=== PATIENT | male | born 1980 | race African-American/Black ===

== ENCOUNTER 2017-06-07 12:33 | Emergency (ER) | payer SELFPAY ==
[~2017-06-07] VITALS: Ht 180.3 cm; Wt 65.0 kg
[~2017-06-07 12:33] MED LIST: AMLO10 PO; AMLO5TAB22 PO; CHLO.12%30 SWISH-SPIT; CLAR10CA3 PO; CLIN150 PO; DIFL100T PO; HYDR-3801 PO; LEVE500 PO; LISI10TA3 PO; NIFE30TA8 PO; OXYC1SOL5 PO; PRED10 PO; WALKER WHEELS/F1 MIS; Z.0.WALKERFRONT
[2017-06-07 12:36] VITALS: BP 170/107; PULSE 93; RESP 10; O2SAT 97
[2017-06-07 12:44] VITALS: BP 152/96; PULSE 95; RESP 10; O2SAT 97
[2017-06-07] MEDS ORDERED: SODIUM CHLORIDE 0.9% FLUSH 10 ML FLUSH IVF PRN (13:00)
[2017-06-07] MEDS ORDERED: OLAN10TA PO (13:01)
[2017-06-07] MEDS ORDERED: HYDR25TA5 PO (13:01)
--- NOTE | 2017-06-07 13:21 | PD ---
HPI . Overdose Chief Complaint: OD/ Ingestion Time Seen by Provider: 12:47 Travel History International Travel<30 days: No Contact w/Intl Traveler<30days: No Traveled to known affect area: No History of Present Illness HPI This patient presents to us status post an overdose. He states that he took all of his prescriptions because he was hearing voices. He states that he was trying to get the voices to stop. He states that the voices are telling him "bad things." The incident reportedly occurred just prior to arrival. He had 7 pills prescribed for each of his 3 prescriptions. 2 of the prescriptions are antihypertensive medications and the other prescription is for an antipsychotic. PFSH Past Medical History Arthritis: No Asthma: Yes Anxiety: Yes Depression: No Heart Rhythm Problems: No Cancer: No High Cholesterol: No Chest Pain: Yes Congestive Heart Failure: No COPD: No Diabetes: No (UNKNOWN ) GERD: Yes Genitourinary: No Headaches: Yes Hepatitis: No Hiatal Hernia: No Hypertension: Yes Kidney Stones: No Musculoskeletal: No Neurologic: Yes Reproductive: No Immunizations Current: Yes Migraines: No Radiation Therapy: No Renal Failure: No Seizures: No Sickle Cell Disease: No Sleep Apnea: No Thyroid Disease: No Ulcer: Yes Tetanus Vaccination: > 5 Years Influenza Vaccination: No Past Surgical History Surgical History: Unable to Obtain Abdominal Surgery: No Cardiac Surgery: No Ear Surgery: No Endocrine Surgery: No Eye Surgery: No Genitourinary Surgery: No Gynecologic Surgery: No Joint Replacement: No Oral Surgery: No Thoracic Surgery: No Other Surgery: No Social History Alcohol Use: No (UNKNOWN ) Tobacco Use: Yes Substance Use: Yes Allergies-Medications (Allergen,Severity, Reaction): Coded Allergies: lisinopril (Unverified Allergy, Severe, angioedema, 04/10/17) Unable to Assess (Unverified Allergy, Unknown, 10/23/16) No Known Allergies (Verified Allergy, 12/27/15) Reported Meds & Prescriptions Reported Meds & Active Scripts Active Nifedipine ER 24 HR (Nifedipine) 30 Mg Tab 30 Mg PO DAILY 30 Days Prednisone 10 Mg Tab 10 Mg PO DAILY 2 Days Diflucan (Fluconazole) 100 Mg Tab 100 Mg PO DAILY 5 Days Cleocin (Clindamycin HCl) 150 Mg Cap 300 Mg PO Q6HR 5 Days Chlorhexidine Gluconate (Mouth) Liq (Chlorhexidine Gluconate) 0.12% Soln 15 Ml SWISH-SPIT TID 10 Days Keppra (Levetiracetam) 500 Mg Tab 500 Mg PO BID Hydralazine (Hydralazine HCl) 100 Mg Tab 25 Mg PO BID Take with meals Claritin (Loratadine) 10 Mg Cap 10 Mg PO DAILY Norvasc (Amlodipine Besylate) 10 Mg Tab 10 Mg PO DAILY Lisinopril 10 Mg Tab 10 Mg PO DAILY 30 Days Reported Olanzapine 10 Mg Tab 10 Mg PO DAILY Hydrochlorothiazide 25 Mg Tab 25 Mg PO DAILY Review of Systems Except as stated in HPI: all other systems reviewed are Neg Physical Exam Narrative GENERAL: The patient is now awake and lying prone on the bed answering questions appropriately. SKIN: warm/dry. HEAD: Normocephalic. Atraumatic. EYES: Pupils equal and round. No scleral icterus. No injection or drainage. ENT: No nasal bleeding or discharge. Mucous membranes pink and moist. NECK: Trachea midline. Full range of motion without pain.. CARDIOVASCULAR: Regular rate and rhythm. RESPIRATORY: No accessory muscle use. Clear to auscultation. Breath sounds equal bilaterally. MUSCULOSKELETAL: No obvious deformities. NEUROLOGICAL: Awake and alert. No obvious cranial nerve deficits. Motor grossly within normal limits. Normal speech. PSYCHIATRIC: Hallucinations. Judgment poor. Data Data Last Documented VS Vital Signs Date Time Temp Pulse Resp B/P (MAP) Pulse Ox O2 Delivery O2 Flow Rate FiO2 06/07/17 15:45 107 12 123/91 (102) 99 Room Air 06/07/17 12:44 2.00 Orders Orders Electrocardiogram (06/07/17 12:47) Complete Blood Count With Diff (06/07/17 12:47) Comprehensive Metabolic Panel (06/07/17 12:47) Iv Access Insert/Monitor (06/07/17 12:47) Ecg Monitoring (06/07/17 12:47) Oximetry (06/07/17 12:47) Sodium Chloride 0.9% Flush (Ns Flush) (06/07/17 13:00) Drug Screen, Random Urine (06/07/17 12:47) Alcohol (Ethanol) (06/07/17 12:47) Tylenol (Acetaminophen) (06/07/17 13:19) Salicylates (Aspirin) (06/07/17 13:19) Psych Screen (3/30/18 15:48) Labs Laboratory Tests Test 06/07/17 13:15 White Blood Count 7.8 TH/MM3 Red Blood Count 3.93 MIL/MM3 Hemoglobin 13.1 GM/DL Hematocrit 38.8 % Mean Corpuscular Volume 98.7 FL Mean Corpuscular Hemoglobin 33.4 PG Mean Corpuscular Hemoglobin Concent 33.8 % Red Cell Distribution Width 12.5 % Platelet Count 277 TH/MM3 Mean Platelet Volume 7.9 FL Neutrophils (%) (Auto) 73.8 % Lymphocytes (%) (Auto) 15.3 % Monocytes (%) (Auto) 7.7 % Eosinophils (%) (Auto) 2.4 % Basophils (%) (Auto) 0.8 % Neutrophils # (Auto) 5.8 TH/MM3 Lymphocytes # (Auto) 1.2 TH/MM3 Monocytes # (Auto) 0.6 TH/MM3 Eosinophils # (Auto) 0.2 TH/MM3 Basophils # (Auto) 0.1 TH/MM3 CBC Comment DIFF FINAL Differential Comment Blood Urea Nitrogen 16 MG/DL Creatinine 1.14 MG/DL Random Glucose 98 MG/DL Total Protein 7.8 GM/DL Albumin 3.6 GM/DL Calcium Level 9.0 MG/DL Alkaline Phosphatase 90 U/L Aspartate Amino Transf (AST/SGOT) 19 U/L Alanine Aminotransferase (ALT/SGPT) 23 U/L Total Bilirubin 0.4 MG/DL Sodium Level 141 MEQ/L Potassium Level 3.5 MEQ/L Chloride Level 105 MEQ/L Carbon Dioxide Level 26.7 MEQ/L Anion Gap 9 MEQ/L Estimat Glomerular Filtration Rate 88 ML/MIN Salicylates Level LESS THAN 1.7 MG/DL Urine Opiates Screen NEG Acetaminophen Level LESS THAN 2.0 MCG/ML Urine Barbiturates Screen NEG Urine Amphetamines Screen NEG Urine Benzodiazepines Screen NEG Urine Cocaine Screen NEG Urine Cannabinoids Screen NEG Ethyl Alcohol Level LESS THAN 3 MG/DL MDM Medical Decision Making Medical Screen Exam Complete: Yes Emergency Medical Condition: Yes Medical Record Reviewed: Yes (His psychiatric diagnosis is substance induced mood disorder.) Differential Diagnosis Differential diagnosis includes but is not limited to factitious report, insignificant ingestion, accidental ingestion, ingestion with significant sequelae Narrative Course This patient presents following an overdose. Poison control has been contacted. Their recommendations will be followed. Once he is medically clear , he will need a psychiatric evaluation. CBC & BMP Diagram 06/07/17 13:15 Total Protein 7.8, Albumin 3.6, Calcium Level 9.0, Alkaline Phosphatase 90, Aspartate Amino Transf (AST/SGOT) 19, Alanine Aminotransferase (ALT/SGPT) 23, Total Bilirubin 0.4 tox screen neg. This patient has been observed for 6 hours per the recommendation of poison control. He is now medically clear for psychiatric evaluation. Diagnosis Primary Impression: Overdose Qualified Codes: T50.901A - Poisoning by unspecified drugs, medicaments and biological substances, accidental (unintentional), initial encounter Additional Impression: Psychosis Qualified Codes: F29 - Unspecified psychosis not due to a substance or known physiological condition Condition: Stable Angie Em MD Jun 07, 2017 13:21
[2017-06-07 13:37] LABS: AUTOMATED NEUTROPHIL # 5.8 TH/MM3 (1.8-7.7); BASOPHIL # 0.1 TH/MM3 (0-0.2); BASOPHIL % 0.8 % (0.0-2.0); EOSINOPHIL # 0.2 TH/MM3 (0-0.4); EOSINOPHIL % 2.4 % (0.0-4.0); HEMATOCRIT 38.8 % (39.0-51.0); HEMOGLOBIN 13.1 GM/DL (13.0-17.0); LYMPH % 15.3 % (9.0-44.0); LYMPHOCYTE # 1.2 TH/MM3 (1.0-4.8); MEAN CELL VOLUME 98.7 FL (80.0-100.0); MEAN CORPUSCULAR HEMOGLOBIN 33.4 PG (27.0-34.0); MEAN CORPUSCULAR HGB CONC 33.8 % (32.0-36.0); MEAN PLATELET VOLUME 7.9 FL (7.0-11.0); MONO % 7.7 % (0.0-8.0); MONOCYTE # 0.6 TH/MM3 (0-0.9); NEUT % 73.8 % (16.0-70.0); PLATELET COUNT 277 TH/MM3 (150-450); RED BLOOD COUNT 3.93 MIL/MM3 (4.50-5.90); RED CELL DISTRIBUTION WIDTH 12.5 % (11.6-17.2); WHITE BLOOD COUNT 7.8 TH/MM3 (4.0-11.0)
[2017-06-07 14:10] LABS: ALBUMIN 3.6 GM/DL (3.4-5.0); AST (GOT) 19 U/L (15-37); BICARBONATE 26.7 MEQ/L (21.0-32.0); BLOOD UREA NITROGEN 16 MG/DL (7-18); CHLORIDE 105 MEQ/L (98-107); CREATININE 1.14 MG/DL (0.60-1.30); GLOMERULAR FILTRATION RATE 88 ML/MIN (>89); GLUCOSE,RANDOM 98 MG/DL (74-106); SODIUM (NA) 141 MEQ/L (136-145)
[2017-06-07 14:11] LABS: ALT (GPT) 23 U/L (12-78)
[2017-06-07 14:12] LABS: ALKALINE PHOSPHATASE 90 U/L (45-117); TOTAL BILIRUBIN ADULT 0.4 MG/DL (0.2-1.0); TOTAL PROTEIN 7.8 GM/DL (6.4-8.2)
[2017-06-07 15:45] VITALS: BP 123/91; PULSE 107; RESP 12; O2SAT 99
[2017-06-07 19:03] VITALS: BP 127/76; PULSE 84; RESP 16; O2SAT 98
[2017-06-07 20:33] VITALS: BP 159/130; PULSE 92; RESP 18; TEMP 97.9; O2SAT 100
[2017-06-07 22:39] VITALS: BP 151/88; PULSE 67; RESP 18; TEMP 98.9; O2SAT 98
[2017-06-08 06:34] VITALS: BP 133/77; PULSE 74; RESP 18; TEMP 98.9; O2SAT 97
[2017-06-08 11:42] VITALS: BP 130/66; PULSE 83; RESP 18; TEMP 98.5; O2SAT 99
--- NOTE | 2017-06-08 12:11 | PD.PSY.CON ---
Provisional Diagnosis Admission Date [place] I. Schizoaffective disorder depressed type f 25.1, history polysubstance abuse History of Present Illness Service Psychiatry Consult Requested By EDMD Reason for Consult Assessment Primary Care Physician Patient is a 36-year-old Afro-Greek male well-known post multiple prior contacts comes here via cab complaining of depression increased auditory hallucinations suicidal ideation stating his medication does not work. Patient seen screened in the ED urine toxicology negative bladder: Negative. Of interest patient also has documentation of being hospitalized at [facility] from 06/05/17 to 06/07/17 it appears she was discharged yesterday and given a prescription for olanzapine amlodipine and hydrochlorothiazide. It appears the [place] he met some friends there supposedly he took all of his pills. Then took a cab and showed [employer]. Patient seen in his room with nurse Lit. Patient is resting quietly in bed with a somewhat irritable angry manipulative attitude. Though he says he is hearing command auditory hallucinations telling him to kill himself and that he is suicidal when confronted with the fact that he had just left an inpatient psychiatric unit yesterday he somewhat close done with his responses. Ineffective the present time I feel this patient is a high risk for doing something impulsive and harming himself. Remains the potential for further psychotic behavior. Thus I will initiate a Gutierrez act. We will contact [facility] and request that they accept this patient back to their [facility]. This appears to be a failed discharge and I feel it is their responsibility to further care for this gentleman. He is no behavior problems at this time. Though he is reluctant to give any information other than what he is already said. HPI Please see dictation above accidentally dictated under "primary care physician" Review of Systems ROS Limitations: Uncooperative Past Family Social History Coded Allergies: lisinopril (Unverified Allergy, Severe, angioedema, 04/10/17) Unable to Assess (Unverified Allergy, Unknown, 10/23/16) No Known Allergies (Verified Allergy, 12/27/15) Active Scripts Nifedipine ER 24 HR (Nifedipine ER 24 HR) 30 Mg Tab, 30 MG PO DAILY for HTN for 30 Days, TAB Prov:Buzz Donato MD 11/01/16 Prednisone (Prednisone) 10 Mg Tab, 10 MG PO DAILY for AMAN for 2 Days, TAB 0 Refills Prov:Buzz Donato MD 09/19/16 Fluconazole (Diflucan) 100 Mg Tab, 100 MG PO DAILY for ORALULc for 5 Days, TAB 0 Refills Prov:Buzz Donato MD 09/19/16 Clindamycin (Cleocin) 150 Mg Cap, 300 MG PO Q6HR for ORALIN for 5 Days, CAP 0 Refills Prov:Buzz Donato MD 09/19/16 Chlorhexidine Gluconate (Mouth) Liq (Chlorhexidine Gluconate (Mouth) Liq) 0.12% Soln, 15 ML SWISH-SPIT TID for oralcare for 10 Days, ML Prov:Buzz Donato MD 09/19/16 Levetiracetam (Keppra) 500 Mg Tab, 500 MG PO BID for Control Seizures, #60 TAB 0 Refills Prov:Maryuri Pope MD 09/15/16 Hydralazine (Hydralazine) 100 Mg Tab, 25 MG PO BID for Blood Pressure Management , #60 TAB 0 Refills Take with meals Prov:Maryuri Pope MD 09/13/16 Loratadine (Claritin) 10 Mg Cap, 10 MG PO DAILY for Allergy Management, #10 CAP 0 Refills Prov:Maryuri Pope MD 09/13/16 Amlodipine (Norvasc) 10 Mg Tab, 10 MG PO DAILY for htn, #30 TAB Prov:Maryuri Pope MD 09/10/16 Lisinopril (Lisinopril) 10 Mg Tab, 10 MG PO DAILY for Blood Pressure Management for 30 Days, TAB Prov:Emy Hillman PA-C 03/01/16 Reported Medications Olanzapine (Olanzapine) 10 Mg Tab, 10 MG PO DAILY, #30 TAB 0 Refills 06/07/17 Hydrochlorothiazide (Hydrochlorothiazide) 25 Mg Tab, 25 MG PO DAILY, #30 TAB 0 Refills 06/07/17 Discontinued Scripts Walker with Front Wheels (Walker with Front Wheels) 1 Mis Mis, 1 EA .ROUTE DIRECTED, #1 EA 0 Refills Prov:Maryuri Pope MD 09/13/16 Current Medications Medications (Trade) Dose Ordered Sig/Gopi Route Start Time Stop Time Status Last Admin (NS Flush) 2 ml UNSCH PRN IVF 06/07/17 13:00 Family Psych History Unknown at this time Social History Unknown at this time Patient's Strengths (min. 2) Patient verbal resistant to cooperation at this time Physical Exam Patient medically cleared ED Vital Signs Vital Signs Date Time Temp Pulse Resp B/P (MAP) Pulse Ox O2 Delivery O2 Flow Rate FiO2 06/08/17 11:42 98.5 83 18 130/66 (87) 99 Room Air 06/07/17 12:44 2.00 Lab Results Test 06/07/17 13:15 White Blood Count 7.8 TH/MM3 Red Blood Count 3.93 MIL/MM3 Hemoglobin 13.1 GM/DL Hematocrit 38.8 % Mean Corpuscular Volume 98.7 FL Mean Corpuscular Hemoglobin 33.4 PG Mean Corpuscular Hemoglobin Concent 33.8 % Red Cell Distribution Width 12.5 % Platelet Count 277 TH/MM3 Mean Platelet Volume 7.9 FL Neutrophils (%) (Auto) 73.8 % Lymphocytes (%) (Auto) 15.3 % Monocytes (%) (Auto) 7.7 % Eosinophils (%) (Auto) 2.4 % Basophils (%) (Auto) 0.8 % Neutrophils # (Auto) 5.8 TH/MM3 Lymphocytes # (Auto) 1.2 TH/MM3 Monocytes # (Auto) 0.6 TH/MM3 Eosinophils # (Auto) 0.2 TH/MM3 Basophils # (Auto) 0.1 TH/MM3 CBC Comment DIFF FINAL Differential Comment Blood Urea Nitrogen 16 MG/DL Creatinine 1.14 MG/DL Random Glucose 98 MG/DL Total Protein 7.8 GM/DL Albumin 3.6 GM/DL Calcium Level 9.0 MG/DL Alkaline Phosphatase 90 U/L Aspartate Amino Transf (AST/SGOT) 19 U/L Alanine Aminotransferase (ALT/SGPT) 23 U/L Total Bilirubin 0.4 MG/DL Sodium Level 141 MEQ/L Potassium Level 3.5 MEQ/L Chloride Level 105 MEQ/L Carbon Dioxide Level 26.7 MEQ/L Anion Gap 9 MEQ/L Estimat Glomerular Filtration Rate 88 ML/MIN Salicylates Level LESS THAN 1.7 MG/DL Urine Opiates Screen NEG Acetaminophen Level LESS THAN 2.0 MCG/ML Urine Barbiturates Screen NEG Urine Amphetamines Screen NEG Urine Benzodiazepines Screen NEG Urine Cocaine Screen NEG Urine Cannabinoids Screen NEG Ethyl Alcohol Level LESS THAN 3 MG/DL Mental Status Examination Appearance: Disheveled Consciousness: Alert Orientation: Person, Place Motor Activity: Normal gait Speech: Hesitant, Slow Language: Other Fund of Knowledge: Adequate Attention and Concentration: Other Memory: Impaired (poor) Mood: Angry, Sad, Irritable Affect: Other (decreased range and intensity) Thought Process & Associations: Disorganized Thought Content: Hallucinations Hallucination Type: Auditory Delusion Type: Paranoid Suicidal Ideation: Yes (command auditory hallucinations) Suicidal Plan: Yes (command auditory hallucinations) Suicidal Intention: Yes (command auditory hallucinations) Homicidal Ideation: No Homicidal Plan: No Homicidal Intention: No Insight: Poor Judgment: Poor Assessment & Plan Problem List: (1) Schizoaffective disorder, depressive type ICD Codes: F25.1 - Schizoaffective disorder, depressive type (2) history polysubstance abuse Assessment & Plan Estimated LOS: days patient meets criteria for involuntary psychiatric consultation at this time. I will initiate a Gutierrez act. I feels patient is a failed discharged from the [facility] act see issue yesterday will refer her back to that facility. May be a component of manipulation malingering involved bifrontal this patient demands further observation and assessment Discharge Planning See above Nathaniel Caraballo MD Jun 08, 2017 12:11
[2017-06-08] MEDS ORDERED: OLANZapine ODT 10 MG TAB SL ONE (12:45)
--- NOTE | 2017-06-08 14:43 | EKG ---
Date Performed: 06/07/2017 Time Performed: 12:39:31 PTAGE: 36 years EKG: Sinus rhythm MARKED LEFT AXIS DEVIATION MINIMAL VOLTAGE CRITERIA FOR LVH, CONSIDER NORMAL VARIANT ABNORMAL ECG Si nce PREVIOUS TRACING , no significant change noted PREVIOUS TRACIN11/06/2016 02.52.22 DOCTOR: Long Baird Interpretating Date/Time 06/08/2017 14:41:47
[2017-06-08 18:10] VITALS: BP 146/81; PULSE 85; RESP 16; TEMP 98.6; O2SAT 100
[2017-06-09 02:27] VITALS: BP 149/72; PULSE 85; RESP 18; TEMP 98.8; O2SAT 99
[2017-06-09 06:21] VITALS: PULSE 88; RESP 20; TEMP 98; O2SAT 98
[2017-06-09 06:41] VITALS: BP_SYST 130; BP_SYST 156; BP_DIAS 101; BP_DIAS 80
[2017-06-09 16:05] VITALS: BP 153/97; PULSE 88; RESP 20
--- NOTE | 2017-06-09 20:55 | PD ---
Physical Exam Date Seen by Provider: Jun 09, 2017 Time Seen by Provider: 20:53 Narrative For full history and physical examination please see previous providers note. Data Data Last Documented VS Vital Signs Date Time Temp Pulse Resp B/P (MAP) Pulse Ox O2 Delivery O2 Flow Rate FiO2 06/09/17 16:05 88 20 153/97 (115) Room Air 06/09/17 06:21 98.0 98 06/07/17 12:44 2.00 Orders Orders Electrocardiogram (06/07/17 12:47) Complete Blood Count With Diff (06/07/17 12:47) Comprehensive Metabolic Panel (06/07/17 12:47) Iv Access Insert/Monitor (06/07/17 12:47) Ecg Monitoring (06/07/17 12:47) Oximetry (06/07/17 12:47) Sodium Chloride 0.9% Flush (Ns Flush) (06/07/17 13:00) Drug Screen, Random Urine (06/07/17 12:47) Alcohol (Ethanol) (06/07/17 12:47) Tylenol (Acetaminophen) (06/07/17 13:19) Salicylates (Aspirin) (06/07/17 13:19) Psych Screen (06/07/17 15:48) Diet Regular Basic (06/08/17 Breakfast) Diet Regular Basic (06/08/17 Lunch) Olanzapine Odt (Zyprexa Zydis Odt) (06/08/17 12:45) Diet Regular Basic (06/08/17 Dinner) Diet Regular Basic (06/09/17 Breakfast) Diet Regular Basic (06/09/17 Lunch) Diet Regular Basic (06/09/17 Dinner) Amlodipine (Norvasc) (06/09/17 20:30) Labs Laboratory Tests Test 06/07/17 13:15 White Blood Count 7.8 TH/MM3 Red Blood Count 3.93 MIL/MM3 Hemoglobin 13.1 GM/DL Hematocrit 38.8 % Mean Corpuscular Volume 98.7 FL Mean Corpuscular Hemoglobin 33.4 PG Mean Corpuscular Hemoglobin Concent 33.8 % Red Cell Distribution Width 12.5 % Platelet Count 277 TH/MM3 Mean Platelet Volume 7.9 FL Neutrophils (%) (Auto) 73.8 % Lymphocytes (%) (Auto) 15.3 % Monocytes (%) (Auto) 7.7 % Eosinophils (%) (Auto) 2.4 % Basophils (%) (Auto) 0.8 % Neutrophils # (Auto) 5.8 TH/MM3 Lymphocytes # (Auto) 1.2 TH/MM3 Monocytes # (Auto) 0.6 TH/MM3 Eosinophils # (Auto) 0.2 TH/MM3 Basophils # (Auto) 0.1 TH/MM3 CBC Comment DIFF FINAL Differential Comment Blood Urea Nitrogen 16 MG/DL Creatinine 1.14 MG/DL Random Glucose 98 MG/DL Total Protein 7.8 GM/DL Albumin 3.6 GM/DL Calcium Level 9.0 MG/DL Alkaline Phosphatase 90 U/L Aspartate Amino Transf (AST/SGOT) 19 U/L Alanine Aminotransferase (ALT/SGPT) 23 U/L Total Bilirubin 0.4 MG/DL Sodium Level 141 MEQ/L Potassium Level 3.5 MEQ/L Chloride Level 105 MEQ/L Carbon Dioxide Level 26.7 MEQ/L Anion Gap 9 MEQ/L Estimat Glomerular Filtration Rate 88 ML/MIN Salicylates Level LESS THAN 1.7 MG/DL Urine Opiates Screen NEG Acetaminophen Level LESS THAN 2.0 MCG/ML Urine Barbiturates Screen NEG Urine Amphetamines Screen NEG Urine Benzodiazepines Screen NEG Urine Cocaine Screen NEG Urine Cannabinoids Screen NEG Ethyl Alcohol Level LESS THAN 3 MG/DL MDM Medical Record Reviewed: Yes Supervised Visit with AYLA: No Narrative Course Patient presented to the emergency department after an intentional overdose secondary to auditory and visual hallucinations. He was seen and evaluated in the emergency department, medically cleared. He was then evaluated by psychiatry. Patient was at [facility], per records the discharge failed and patient will be returning there tonight for further treatment. Diagnosis Primary Impression: Overdose Qualified Codes: T50.901A - Poisoning by unspecified drugs, medicaments and biological substances, accidental (unintentional), initial encounter Additional Impression: Psychosis Qualified Codes: F29 - Unspecified psychosis not due to a substance or known physiological condition Patient Instructions: General Instructions Departure Forms: Tests/Procedures Additional Instruction: GO TO [facility] FOR FURTHER EVALUATION AND TREATMENT Disposition: 65 DISC TO PSYCH CARE FACILITY Condition: Stable Nayeli Noble Judy TORREZ Jun 09, 2017 20:55
== END 2017-06-09 21:25 ==
LOC: NEPC 12:33 → NEPJ 06-09 21:25
DX: T50.902A Poisoning by unspecified drugs, medicaments and biological substances, intentional self-harm, initial encounter (principal); F25.1 Schizoaffective disorder, depressive type; R94.31 Abnormal electrocardiogram [ECG] [EKG]; I10 Essential (primary) hypertension; Z72.0 Tobacco use
CPT/HCPCS: 80053; 80307; 85025; 93005

== ENCOUNTER 2017-07-09 20:54 | Emergency (ER) | payer OTHER ==
[~2017-07-09] VITALS: Ht 172.7 cm; Wt 78.0 kg
[~2017-07-09 20:54] MED LIST changes: -AMLO5TAB22 PO; +HYDR25TA5 PO; +OLAN10TA PO; -OXYC1SOL5 PO; -WALKER WHEELS/F1 MIS; -Z.0.WALKERFRONT
[2017-07-09 21:08] VITALS: BP 160/81; PULSE 110; RESP 18; TEMP 98.3; O2SAT 97
[2017-07-09] MEDS ORDERED: LORazepam 2 MG/ML VIAL IV PUSH ONE ×2 (21:15→22:00)
--- NOTE | 2017-07-09 21:19 | PD ---
HPI Chief Complaint: Alcohol/Drug Intoxication Time Seen by Provider: 21:10 Travel History International Travel<30 days: No Contact w/Intl Traveler<30days: No Traveled to known affect area: No History of Present Illness HPI 36-year-old black male with history of substance abuse presents emergency department under [place] act due to substance abuse. Patient has been doing FLAKKA and [place] Per PD. The patient is cooperative but agitated. Patient is not able to render meaningful history. This is a presentation that the patient has had multiple times in the past. PFSH Past Medical History Arthritis: No Asthma: Yes Anxiety: Yes Depression: No Heart Rhythm Problems: No Cancer: No High Cholesterol: No Chest Pain: Yes Congestive Heart Failure: No COPD: No Diabetes: No (UNKNOWN ) Gastrointestinal Disorders: No GERD: Yes Genitourinary: No Headaches: Yes Hepatitis: No Hiatal Hernia: No Hypertension: Yes Kidney Stones: No Musculoskeletal: No Neurologic: Yes Reproductive: No Immunizations Current: Yes Migraines: No Radiation Therapy: No Renal Failure: No Seizures: No Sickle Cell Disease: No Sleep Apnea: No Thyroid Disease: No Ulcer: Yes Tetanus Vaccination: > 5 Years Influenza Vaccination: No Past Surgical History Abdominal Surgery: No Cardiac Surgery: No Ear Surgery: No Endocrine Surgery: No Eye Surgery: No Genitourinary Surgery: No Gynecologic Surgery: No Joint Replacement: No Neurologic Surgery: No Oral Surgery: No Thoracic Surgery: No Other Surgery: No Social History Alcohol Use: No (UNKNOWN ) Tobacco Use: Yes Substance Use: Yes ([email or web address]) Allergies-Medications (Allergen,Severity, Reaction): Coded Allergies: lisinopril (Unverified Allergy, Severe, angioedema, 07/09/17) No Known Allergies (Verified Allergy, Unknown, 07/09/17) Unable to Assess (Unverified Allergy, Unknown, 07/09/17) Reported Meds & Prescriptions Reported Meds & Active Scripts Active Nifedipine ER 24 HR (Nifedipine) 30 Mg Tab 30 Mg PO DAILY 30 Days Prednisone 10 Mg Tab 10 Mg PO DAILY 2 Days Diflucan (Fluconazole) 100 Mg Tab 100 Mg PO DAILY 5 Days Cleocin (Clindamycin HCl) 150 Mg Cap 300 Mg PO Q6HR 5 Days Chlorhexidine Gluconate (Mouth) Liq (Chlorhexidine Gluconate) 0.12% Soln 15 Ml SWISH-SPIT TID 10 Days Keppra (Levetiracetam) 500 Mg Tab 500 Mg PO BID Hydralazine (Hydralazine HCl) 100 Mg Tab 25 Mg PO BID Take with meals Claritin (Loratadine) 10 Mg Cap 10 Mg PO DAILY Norvasc (Amlodipine Besylate) 10 Mg Tab 10 Mg PO DAILY Lisinopril 10 Mg Tab 10 Mg PO DAILY 30 Days Reported Olanzapine 10 Mg Tab 10 Mg PO DAILY Hydrochlorothiazide 25 Mg Tab 25 Mg PO DAILY Review of Systems ROS Limitations: Intoxication, Altered Mental Status Physical Exam Narrative GENERAL: Well-nourished, well-developed patient. SKIN: Warm and dry. HEAD: Normocephalic and atraumatic. EYES: No scleral icterus. No injection or drainage. ENT: No nasal drainage noted. Mucous membranes pink. Airway patent. NECK: Supple, trachea midline. Moves head freely without obvious discomfort. CARDIOVASCULAR: Regular tachycardic rate and rhythm without murmurs, gallops, or rubs. RESPIRATORY: Breath sounds equal bilaterally. No accessory muscle use. GASTROINTESTINAL: Abdomen soft, non-tender, nondistended. EXTREMITIES: No cyanosis or edema. BACK: Nontender without obvious deformity. No CVA tenderness. NEURO: Patient is alert and oriented. no sensorimotor deficits. Nonfocal. Normal speech. PSYCH: Patient is acutely agitated. Poor insight and judgment Data Data Last Documented VS Vital Signs Date Time Temp Pulse Resp B/P (MAP) Pulse Ox O2 Delivery O2 Flow Rate FiO2 07/09/17 21:08 98.3 110 18 160/81 (107) 97 Orders Orders Lorazepam Inj (Ativan Inj) (07/09/17 21:15) [facility] Medical Decision Making Medical Screen Exam Complete: Yes Emergency Medical Condition: Yes Medical Record Reviewed: Yes Differential Diagnosis Differential diagnoses: Alcohol intoxication, substance abuse, electrolyte abnormality, malingering Narrative Course The patient is cooperative but agitated. He is given 2 mg of Ativan IV. Patient is on a sat monitor as well as grader tender. Diagnosis Primary Impression: Substance abuse Additional Impression: Altered mental status Qualified Codes: R40.0 - Somnolence Med/Other Pt SpecificInfo: No Meds Exist/No RX given Condition: Stable Lavell Car July 09, 2017 21:19
[2017-07-09] MEDS ORDERED: HALOPERIDOL LACTATE 5 MG/ML AMP IV ONE (21:30)
[2017-07-09 21:56] VITALS: PULSE 100; RESP 16; O2SAT 96
[2017-07-09 23:28] VITALS: PULSE 87; RESP 16; O2SAT 96
[2017-07-10 05:36] VITALS: BP 141/84; PULSE 79; RESP 16; O2SAT 97
== END 2017-07-10 09:58 | disposition home or self-care (01) ==
LOC: NEPD 20:54
DX: F19.10 Other psychoactive substance abuse, uncomplicated (principal); I10 Essential (primary) hypertension; Z72.0 Tobacco use
CPT/HCPCS: 96374; 96375; 99284; J1630; J2060

== ENCOUNTER 2017-12-04 01:07 | Inpatient (IN) ==
[2017-12-04 01:48] LABS: Baso # (Auto) 0.1 th/mm3 (0.0-0.2); Baso % (Auto) 0.7 % (0.0-2.0); Eos % (Auto) 0.1 % (0.0-4.0); Hematocrit 41.7 % (39.0-51.0); Hemoglobin 14.1 gm/dL (13.0-17.0); Lymph # (Auto) 1.3 th/mm3 (1.0-4.8); Lymph % (Auto) 9.4 % (9.0-44.0); Mean Corpuscular HGB Conc 33.9 % (32.0-36.0); Mean Corpuscular Hemoglobin 33.1 pg (27.0-34.0); Mean Corpuscular Volume 97.5 fL (80.0-100.0); Mono # (Auto) 1.4 th/mm3 (0.0-0.9); Mono % (Auto) 10.5 % (0.0-8.0); Neut # (Auto) 10.8 th/mm3 (1.8-7.7); Neut % (Auto) 79.3 % (16.0-70.0); Platelet Count 300 th/mm3 (150-450); Red Blood Count 4.27 mil/mm3 (4.50-5.90); Red Cell Distribution Width 13.2 % (11.6-17.2); White Blood Count 13.7 th/mm3 (4.0-11.0)
[2017-12-04 01:57] LABS: Amphetamine Urine With Conf Neg (Neg); Benzodiazepine Urine With Conf Neg (Neg)
[2017-12-04 02:14] LABS: Alkaline Phosphatase 102 U/L (45-117); Total Protein 9.4 g/dL (6.4-8.2)
[2017-12-04 02:15] LABS: Alanine Aminotransferase 34 U/L (12-78); Albumin 4.9 g/dL (3.4-5.0); Anion Gap 17 meq/L (5-15); Aspartate Aminotransferase 59 U/L (15-37); Blood Urea Nitrogen 31 mg/dL (7-18); Calcium 8.8 mg/dL (8.5-10.1); Carbon Dioxide 23.3 meq/L (21.0-32.0); Chloride 95 meq/L (98-107); Glomerular Filtration Rate 21 mL/min (>89); Glucose,Random 79 mg/dL (74-106); Sodium 135 meq/L (136-145)
[2017-12-04 02:16] LABS: Potassium 3.7 meq/L (3.5-5.1)
--- NOTE | 2017-12-04 02:22 | XR ---
EXAM DATE: 12/04/2017 1:14 AM EDT AGE/SEX: 37 years / Male INDICATIONS: OD, cough. CLINICAL DATA: This is the patient's initial encounter. Patient reports that signs and symptoms have been present for 1 day and indicates a pain score of Nonresponsive. MEDICAL/SURGICAL HISTORY: Non-responsive. Non-responsive. COMPARISON: [facility] [place], CHEST 2V PA&LAT, 11/20/2017. . FINDINGS: 2 AP views of the chest. Right lung apex not visualized. The lungs are clear. Cardiomedia stinal silhouette within normal limits. No evidence of pleural effusion or pneumothorax. CONCLUSION: No acute cardiopulmonary disease identified. Electronically signed by: Homero Burkett MD 12/04/2017 2:20 AM EDT
[2017-12-04] MEDS ORDERED: Sod Chloride 0.9% Inj 1,000 ML IV.SIG ONE (02:38)
--- NOTE | 2017-12-04 02:43 | ED ---
HPI General Chief Complaint: Overdose Stated Complaint: Confused Time Seen by Provider: 12/04/17 01:14 Source: EMS and old records reviewed Mode of arrival: EMS Limitations: altered mental status History of Present Illness HPI Narrative: Patient is a 37-year-old male that was brought in by EMS where he was found outside [facility] house facedown on the grass. Pupils were dilated and nonreactive patient was given Narcan without any response. He is known Flock a user. He arrived on restraints because he was aggressive with paramedics and his GCS on the scene was 6 but then she was placed on restraints. complaint: other (Unknown overdose) Onset (ago): unknown Related Data Home Medications Medication Instructions Recorded Confirmed No Known Home Medications 11/20/17 12/04/17 Allergies Allergy/AdvReac Type Severity Reaction Status Date / Time lisinopril Allergy Severe angioedema Verified 12/04/17 01:13 Review of Systems ROS Unobtainable ROS Unobtainable: unobtainable due to mental status PMFSH Medical History Medical History Hypertension (Acute) Patient denies medical problems (Acute) Surgical History Surgical History No history of previous surgery (Acute) Family History Family History Other Family history unobtainable Family history unobtainable due to patient's condition Social History Social History Substance History: Unable to Obtain Second Hand Smoke Exposure: Yes Smoking Status: Unknown if ever smoked Tobacco Type: Cigarettes How Often Do You Have a Drink Containing Alcohol: Unable to Obtain Recent Travel in [facility] within the Last 8 Weeks: No Recent Out of Country Travel within the Last 8 Weeks: No Immunization History Tetanus Immunization: Unable to Assess Hx Influenza Vaccine This Season: Unable to Assess Exam Narrative Exam Narrative: GENERAL: Patient distracts to painful stimuli. SKIN: Focused skin assessment warm/dry. He has got dried grafts all over his body. HEAD: Atraumatic. Normocephalic. EYES: Pupils equal and round.Pupils 4 mm bilaterally and sluggish to direct light. No scleral icterus. No injection or drainage. ENT: No nasal bleeding or discharge. Mucous membranes pink and moist. NECK: Trachea midline. No JVD. CARDIOVASCULAR: Regular rate and rhythm. No murmur appreciated. RESPIRATORY: No accessory muscle use. Clear to auscultation. Breath sounds equal bilaterally. GASTROINTESTINAL: Abdomen soft, non-tender, nondistended. Hepatic and splenic margins not palpable. MUSCULOSKELETAL: No obvious deformities. No clubbing. No cyanosis. No edema. NEUROLOGICAL: Does not follow commands arousable to sternal rub moves all extremities no signs of focal neurologic deficit PSYCHIATRIC: unable to assess Course Hospital Course: Patient in renal failure and elevated CK and positive tox screen for cocaine. Start hydration. Head CT and cervical spine are pending at this time. Reevaluation(s) Reevaluation #1: Sleeping comfortably no distress stable vitals. Time: 02:43 Initial Documented Vital Signs Pulse Rate 93 H 12/04/17 01:13 Respiratory Rate 18 12/04/17 01:13 Blood Pressure 150/98 H 12/04/17 01:13 Pulse Oximetry 100 12/04/17 01:13 Last Documented Vital Signs Temperature 98.7 F 12/04/17 12:00 Pulse Rate 76 12/04/17 12:00 Respiratory Rate 18 12/04/17 12:00 Blood Pressure 165/100 H 12/04/17 12:00 Pulse Oximetry 95 12/04/17 12:00 Critical Care Time Critical Care Time: Yes Total Critical Care Time: 45 Attestation: Aggregate critical care time was 45 minutes. Time to perform other separately billable procedures was not included in the critical care time. My time did not include minutes spent treating any other patients simultaneously or on activities that did not directly contribute to the patient's treatment. The services I provided to this patient were to treat and/or prevent clinically significant deterioration that could result in: Permanent disability and I provided critical care services requiring my management, as noted below: Chart data review, documentation time, medication orders and management, vital sign assessments/reviewing monitor data, ordering and reviewing lab tests, ordering and interpreting/reviewing x-rays and diagnostic studies, care of the patient and discussion of the patient with the admitting physicians. Medical Decision Making MDM Narrative Medical decision making narrative: Patient with a creatinine of 3.96. CPK was pending at this time. Had an anion gap of 17. Possibly Flock/stimulant use. Cocaine positive on tox screen. Given Ativan for agitation. Hemodynamically stable he does have a leukocytosis no signs of infection. Medical Screen Exam Complete: Yes Emergency Medical Condition: Yes Medical Records Medical records reviewed: Yes I reviewed the patient's medical records. Lab Data Lab results reviewed: Yes I reviewed the patient's lab results. Result diagrams: 12/04/17 01:20 12/04/17 13:00 Lab Results 12/04/17 12/04/17 12/04/17 Range/Units 01:20 01:20 01:20 WBC 13.7 H (4.0-11.0) th/mm3 RBC 4.27 L (4.50-5.90) mil/mm3 Hgb 14.1 (13.0-17.0) gm/dL Hct 41.7 (39.0-51.0) % MCV 97.5 (80.0-100.0) fL MCH 33.1 (27.0-34.0) pg MCHC 33.9 (32.0-36.0) % RDW 13.2 (11.6-17.2) % Plt Count 300 D (150-450) th/mm3 MPV 8.0 (7.0-11.0) fL Neut % (Auto) 79.3 H (16.0-70.0) % Lymph % (Auto) 9.4 (9.0-44.0) % Crenshaw % (Auto) 10.5 H (0.0-8.0) % Eos % (Auto) 0.1 (0.0-4.0) % Baso % (Auto) 0.7 (0.0-2.0) % Neut # (Auto) 10.8 H (1.8-7.7) th/mm3 Lymph # (Auto) 1.3 (1.0-4.8) th/mm3 Crenshaw # (Auto) 1.4 H (0.0-0.9) th/mm3 Eos # (Auto) 0.0 (0.0-0.4) th/mm3 Baso # (Auto) 0.1 (0.0-0.2) th/mm3 WBC Differential . Differential Comment Auto diff final Sodium 135 L (136-145) meq/L Potassium 3.7 (3.5-5.1) meq/L Chloride 95 L (98-107) meq/L Carbon Dioxide 23.3 (21.0-32.0) meq/L Anion Gap 17 H (5-15) meq/L BUN 31 H (7-18) mg/dL Creatinine 3.96 H (0.60-1.30) mg/dL Estimated GFR 21 L (>89) mL/min POC Glucose (68-110) mg/dl Random Glucose 79 (74-106) mg/dL Lactic Acid (0.4-2.0) mmol/L Calcium 8.8 (8.5-10.1) mg/dL Total Bilirubin 1.1 H (0.2-1.0) mg/dL Direct Bilirubin (0.0-0.2) mg/dL Indirect Bilirubin (0.0-0.8) mg/dL AST 59 H (15-37) U/L ALT 34 (12-78) U/L Alkaline Phosphatase 102 (45-117) U/L Total Creatine Kinase (39-308) U/L CK-MB (CK-2) (0.5-3.6) ng/mL CK-MB (CK-2) % (0.0-4.0) % Total Protein 9.4 H (6.4-8.2) g/dL Albumin 4.9 (3.4-5.0) g/dL TSH 1.770 (0.358-3.740) uIU/mL Salicylates 2.3 L (2.8-20.0) mg/dL Urine Opiates Screen Acetaminophen Less than 2.0 L (10.0-30.0) mcg/mL Ur Barbiturates Screen Ur Amphetamine Screen (Neg) Ur Amphetamines Screen U Benzodiazepines Scrn Urine Cocaine Screen U Cannabinoids Screen Serum Alcohol Less than 3 (0-5) mg/dL 12/04/17 12/04/17 12/04/17 Range/Units 01:20 01:30 01:30 WBC (4.0-11.0) th/mm3 RBC (4.50-5.90) mil/mm3 Hgb (13.0-17.0) gm/dL Hct (39.0-51.0) % MCV (80.0-100.0) fL MCH (27.0-34.0) pg MCHC (32.0-36.0) % RDW (11.6-17.2) % Plt Count (150-450) th/mm3 MPV (7.0-11.0) fL Neut % (Auto) (16.0-70.0) % Lymph % (Auto) (9.0-44.0) % Crenshaw % (Auto) (0.0-8.0) % Eos % (Auto) (0.0-4.0) % Baso % (Auto) (0.0-2.0) % Neut # (Auto) (1.8-7.7) th/mm3 Lymph # (Auto) (1.0-4.8) th/mm3 Crenshaw # (Auto) (0.0-0.9) th/mm3 Eos # (Auto) (0.0-0.4) th/mm3 Baso # (Auto) (0.0-0.2) th/mm3 WBC Differential Differential Comment Sodium (136-145) meq/L Potassium (3.5-5.1) meq/L Chloride (98-107) meq/L Carbon Dioxide (21.0-32.0) meq/L Anion Gap (5-15) meq/L BUN (7-18) mg/dL Creatinine (0.60-1.30) mg/dL Estimated GFR (>89) mL/min POC Glucose (68-110) mg/dl Random Glucose (74-106) mg/dL Lactic Acid (0.4-2.0) mmol/L Calcium (8.5-10.1) mg/dL Total Bilirubin (0.2-1.0) mg/dL Direct Bilirubin (0.0-0.2) mg/dL Indirect Bilirubin (0.0-0.8) mg/dL AST (15-37) U/L ALT (12-78) U/L Alkaline Phosphatase (45-117) U/L Total Creatine Kinase 2549 H (39-308) U/L CK-MB (CK-2) 8.8 H (0.5-3.6) ng/mL CK-MB (CK-2) % 0.3 (0.0-4.0) % Total Protein (6.4-8.2) g/dL Albumin (3.4-5.0) g/dL TSH (0.358-3.740) uIU/mL Salicylates (2.8-20.0) mg/dL Urine Opiates Screen Cancelled Neg Acetaminophen (10.0-30.0) mcg/mL Ur Barbiturates Screen Cancelled Neg Ur Amphetamine Screen Neg (Neg) Ur Amphetamines Screen Cancelled U Benzodiazepines Scrn Cancelled Neg Urine Cocaine Screen Cancelled Pos H U Cannabinoids Screen Cancelled Neg Serum Alcohol (0-5) mg/dL 12/04/17 12/04/17 12/04/17 Range/Units 07:29 09:25 10:01 WBC (4.0-11.0) th/mm3 RBC (4.50-5.90) mil/mm3 Hgb (13.0-17.0) gm/dL Hct (39.0-51.0) % MCV (80.0-100.0) fL MCH (27.0-34.0) pg MCHC (32.0-36.0) % RDW (11.6-17.2) % Plt Count (150-450) th/mm3 MPV (7.0-11.0) fL Neut % (Auto) (16.0-70.0) % Lymph % (Auto) (9.0-44.0) % Crenshaw % (Auto) (0.0-8.0) % Eos % (Auto) (0.0-4.0) % Baso % (Auto) (0.0-2.0) % Neut # (Auto) (1.8-7.7) th/mm3 Lymph # (Auto) (1.0-4.8) th/mm3 Crenshaw # (Auto) (0.0-0.9) th/mm3 Eos # (Auto) (0.0-0.4) th/mm3 Baso # (Auto) (0.0-0.2) th/mm3 WBC Differential Differential Comment Sodium 136 (136-145) meq/L Potassium 3.7 (3.5-5.1) meq/L Chloride 102 (98-107) meq/L Carbon Dioxide 24.4 (21.0-32.0) meq/L Anion Gap 10 (5-15) meq/L BUN 29 H (7-18) mg/dL Creatinine 2.52 H (0.60-1.30) mg/dL Estimated GFR 35 L (>89) mL/min POC Glucose (68-110) mg/dl Random Glucose 72 L (74-106) mg/dL Lactic Acid 0.9 (0.4-2.0) mmol/L Calcium 8.9 (8.5-10.1) mg/dL Total Bilirubin 1.1 H (0.2-1.0) mg/dL Direct Bilirubin 0.2 (0.0-0.2) mg/dL Indirect Bilirubin 0.9 H (0.0-0.8) mg/dL AST (15-37) U/L ALT (12-78) U/L Alkaline Phosphatase (45-117) U/L Total Creatine Kinase 2100 H (39-308) U/L CK-MB (CK-2) 9.0 H (0.5-3.6) ng/mL CK-MB (CK-2) % 0.4 (0.0-4.0) % Total Protein (6.4-8.2) g/dL Albumin (3.4-5.0) g/dL TSH (0.358-3.740) uIU/mL Salicylates (2.8-20.0) mg/dL Urine Opiates Screen Acetaminophen (10.0-30.0) mcg/mL Ur Barbiturates Screen Ur Amphetamine Screen (Neg) Ur Amphetamines Screen U Benzodiazepines Scrn Urine Cocaine Screen U Cannabinoids Screen Serum Alcohol (0-5) mg/dL 12/04/17 12/04/17 Range/Units 13:00 15:00 WBC (4.0-11.0) th/mm3 RBC (4.50-5.90) mil/mm3 Hgb (13.0-17.0) gm/dL Hct (39.0-51.0) % MCV (80.0-100.0) fL MCH (27.0-34.0) pg MCHC (32.0-36.0) % RDW (11.6-17.2) % Plt Count (150-450) th/mm3 MPV (7.0-11.0) fL Neut % (Auto) (16.0-70.0) % Lymph % (Auto) (9.0-44.0) % Crenshaw % (Auto) (0.0-8.0) % Eos % (Auto) (0.0-4.0) % Baso % (Auto) (0.0-2.0) % Neut # (Auto) (1.8-7.7) th/mm3 Lymph # (Auto) (1.0-4.8) th/mm3 Crenshaw # (Auto) (0.0-0.9) th/mm3 Eos # (Auto) (0.0-0.4) th/mm3 Baso # (Auto) (0.0-0.2) th/mm3 WBC Differential Differential Comment Sodium 140 (136-145) meq/L Potassium 3.6 (3.5-5.1) meq/L Chloride 104 (98-107) meq/L Carbon Dioxide 25.0 (21.0-32.0) meq/L Anion Gap 11 (5-15) meq/L BUN 26 H (7-18) mg/dL Creatinine 2.05 H (0.60-1.30) mg/dL Estimated GFR 44 L (>89) mL/min POC Glucose 84 (68-110) mg/dl Random Glucose 69 L (74-106) mg/dL Lactic Acid (0.4-2.0) mmol/L Calcium 8.5 (8.5-10.1) mg/dL Total Bilirubin (0.2-1.0) mg/dL Direct Bilirubin (0.0-0.2) mg/dL Indirect Bilirubin (0.0-0.8) mg/dL AST (15-37) U/L ALT (12-78) U/L Alkaline Phosphatase (45-117) U/L Total Creatine Kinase 1810 H (39-308) U/L CK-MB (CK-2) 7.9 H (0.5-3.6) ng/mL CK-MB (CK-2) % 0.4 (0.0-4.0) % Total Protein (6.4-8.2) g/dL Albumin (3.4-5.0) g/dL TSH (0.358-3.740) uIU/mL Salicylates (2.8-20.0) mg/dL Urine Opiates Screen Acetaminophen (10.0-30.0) mcg/mL Ur Barbiturates Screen Ur Amphetamine Screen (Neg) Ur Amphetamines Screen U Benzodiazepines Scrn Urine Cocaine Screen U Cannabinoids Screen Serum Alcohol (0-5) mg/dL Imaging Data Radiologist's impression: Abdomen/Bladder Ultrasound 12/04/17 00:00 CONCLUSION: 1. Echogenic kidneys consistent with medical renal disease. 2. No evidence for obstructive uropathy. Cervical Spine CT 12/04/17 01:14 CONCLUSION: No evidence of fracture. Chest X-Ray 12/04/17 01:14 CONCLUSION: No acute cardiopulmonary disease identified. Head CT 12/04/17 01:14 CONCLUSION: No acute intracranial findings. . Discharge Plan Discharge Disposition Patient Disposition: 30 Still Patient Discharge Condition Condition: Stable Discharge Details Diagnosis: Cocaine abuse, Drug overdose, Acute renal failure, Cocaine intoxication Physicians Team ED Provider: Edgar Hayden Primary Care Provider: Primary Care Anni Núñez Attending Provider: Doris Cabrera Other Providers: Kalyan Meneses Discharge Interventions Interventions: ED Discharge Assessment Last Done: 12/04/17 07:36 Status ED Status: Left Department Discharge Information Discharge Date/Time: 12/04/17 07:37
--- NOTE | 2017-12-04 04:47 | CT ---
EXAM DATE: 12/04/2017 1:33 AM EDT AGE/SEX: 37 years / Male INDICATIONS: Altered mental status. Overdose. CLINICAL DATA: This is the patient's initial encounter. Patient reports that signs and symptoms have been present for 1 day and indicates a pain score of Nonresponsive. MEDICAL/SURGICAL HISTORY: Non-responsive. Non-responsive. RADIATION DOSE: 56.35 CTDI (mGy) COMPARISON: [facility] [place], CT HEAD W/O CONTRAST, 11/21/2017. . TECHNIQUE: CT of the head without contrast. Using automated exposure control and adjustment of the mA and/or kV according to patient size, radiation dose was kept as low as reasonably achievable to ob tain optimal diagnostic quality images. DICOM format image data is available electronically for revi ew and comparison. FINDINGS: Cerebrum: The ventricles are normal for age. No evidence of midline shift, mass lesion, hemorrhage or acute infarction. No extraaxial fluid collections are seen. Moderate motion artifact. Posterior Fossa: The cerebellum and brainstem are intact. The 4th ventricle is midline. The cerebe llopontine angle is unremarkable. Extracranial: 1.7 cm polyp or retention cyst in left maxillary sinus. Skull: The calvaria is intact. No evidence of skull fracture. CONCLUSION: No acute intracranial findings. . Electronically signed by: Homero Burkett MD 12/04/2017 4:46 AM EDT
--- NOTE | 2017-12-04 04:51 | CT ---
EXAM DATE: 12/04/2017 1:33 AM EDT AGE/SEX: 37 years / Male INDICATIONS: Altered mental status. Overdose. CLINICAL DATA: This is the patient's initial encounter. Patient reports that signs and symptoms have been present for 1 day and indicates a pain score of Nonresponsive. MEDICAL/SURGICAL HISTORY: Non-responsive. Non-responsive. RADIATION DOSE: 21.53 CTDI (mGy) COMPARISON: [facility] [place], [place] CERVICAL SPINE W/O CONTRAST, 09/06/2016. . TECHNIQUE: Contiguous axial images were obtained using helical multirow detector technique. The vol umetric data was post-processed with multiplanar reconstruction in oblique axial, sagittal, and coron al planes. Using automated exposure control and adjustment of the mA and/or kV according to patient s ize, radiation dose was kept as low as reasonably achievable to obtain optimal diagnostic quality renate ges. DICOM format image data is available electronically for review and comparison. FINDINGS: No evidence fracture. Alignment within normal limits. Minimal broad-based disc osteophyte complex at C4-5. Central canal diameter and neural foraminal diameters within normal limits at all levels. CONCLUSION: No evidence of fracture. Electronically signed by: Homero Burkett MD 12/04/2017 4:49 AM EDT
[2017-12-04] MEDS ORDERED: Bisacodyl 10 MG Supp RECTAL PRN (05:18)
--- NOTE | 2017-12-04 05:59 | P.HPIM ---
History of Present Illness Primary Care Physician: No Primary Care Physician History of Present Illness: 37-year-old male with a history of past FLAKKA ingestion. Patient is not answering any questions, and history is obtained from ER physician and chart review. He was brought in by EMS, having been found outside a alf house down in the grass. Pupils are dilated and nonreactive. Patient was given Narcan without response. Patient arrived in restraints due to aggression towards paramedics. Patient has continued to growl at nurses and act aggressively during his stay in the ER, requiring Ativan. Upon my IV evaluation, patient is somnolent, arousable to tactile stimulation. Nursing reports that he was agitated and growling prior to sedatives being given. Review of Systems unobtainable due to mental status PMFSH - History History Provided By: Manager Leasing / EMT - Medical / Surgical Hx Neg / Unobtainable Medical Problems Denied: Unable to Obtain Surgical History: Unable to Obtain - Medical History Medical History: Medical History (Last Reviewed 12/04/17 @ 02:42 by Edgar Hayden DO) Hypertension Patient denies medical problems - Surgical History Surgical History: Surgical History (Last Reviewed 12/04/17 @ 02:42 by Edgar Hayden DO) No history of previous surgery - Family History Family History: Family History (Last Updated 12/04/17 @ 05:54 by Aman Ross MD) Other Family history unobtainable Family history unobtainable due to patient's condition - Social History I have reviewed the patient's Social History: Yes - Tobacco History Second Hand Smoke Exposure: Yes Smoking Status: Unknown if ever smoked Tobacco Type: Cigarettes - Alcohol History How Often Do You Have a Drink Containing Alcohol: Unable to Obtain - Substance Use History Substance History: Unable to Obtain - Travel History Recent Travel in the [place] Within the Last 8 Weeks: No Recent Travel Out of the Country Within the Last 8 Weeks: No - Immunization History Tetanus Immunization: Unable to Assess Hx Influenza Vaccine This Season: Unable to Assess Medications and Allergies Active Medications: Active Medications Al Hydroxide/Mg Hydroxide (Milk Of Magnesia Liq) 30 ml PO Q12H PRN PRN Reason: Mild Constipation Bisacodyl (Dulcolax Supp) 10 mg RECTAL DAILY PRN PRN Reason: SEVERE CONSITIPATION Sodium Chloride (Ns Inj) 1,000 mls @ 150 mls/hr IV.CONT .Q6H40M [facility] Lactulose (Lactulose Liq) 30 ml PO DAILY PRN PRN Reason: SEVERE CONSITIPATION Sennosides (Senokot) 17.2 mg PO Q12H PRN PRN Reason: Moderate Constipation Allergies Allergy/AdvReac Type Severity Reaction Status Date / Time lisinopril Allergy Severe angioedema Verified 12/04/17 01:13 Home Medications Medication Instructions Recorded Confirmed Type No Known Home Medications 11/20/17 12/04/17 History Exam Vital signs: Vital Signs 12/04/17 01:13 12/04/17 01:16 Temperature 99 F Pulse Rate 93 H Respiratory Rate 18 Blood Pressure 150/98 H Pulse Oximetry 100 Intake & Output 12/03/17 12/03/17 12/04/17 06:59 18:59 06:59 Intake Total 1000 / 1000 Balance 1000 / 1000 Weight 81.647 kg Intake: IV 1000 / 1000 NS Inj 1,000 ML @ Wide Open IV. 1000 / 1000 SIG BOLUS ONE Rx#:[id number] Narrative: GENERAL: Patient sleeping, arousable to tactile stimulation. Does not answer any questions. He does nod his head up and down when I asked if he is doing okay SKIN: Warm and dry. HEAD: Atraumatic. Normocephalic. EYES: Pupils equal and round. No scleral icterus. No injection or drainage. ENT: No nasal bleeding or discharge. Mucous membranes pink and moist. NECK: Trachea midline. No JVD. CARDIOVASCULAR: Regular rate and rhythm. RESPIRATORY: No accessory muscle use. Clear to auscultation. Breath sounds equal bilaterally. GASTROINTESTINAL: Abdomen soft, non-tender, nondistended. Hepatic and splenic margins not palpable. MUSCULOSKELETAL: Extremities without clubbing, cyanosis, or edema. No obvious deformities. NEUROLOGICAL: sleeping. No obvious cranial nerve deficits. Motor grossly within normal limits. Moving all extremities on tactile stimulation. PSYCHIATRIC: Has been growling at nurses prior to receiving Ativan. Results - Labs CBC & Chem 7: 12/04/17 01:20 12/04/17 01:20 Labs: Short CBC 12/04/17 Range/Units 01:20 WBC 13.7 H (4.0-11.0) th/mm3 Hgb 14.1 (13.0-17.0) gm/dL Hct 41.7 (39.0-51.0) % Plt Count 300 D (150-450) th/mm3 BMP 12/04/17 01:20 Sodium 135 L Potassium 3.7 Chloride 95 L Carbon Dioxide 23.3 BUN 31 H Creatinine 3.96 H Calcium 8.8 Liver Function 12/04/17 Range/Units 01:20 Total Bilirubin 1.1 H (0.2-1.0) mg/dL AST 59 H (15-37) U/L ALT 34 (12-78) U/L Alkaline Phosphatase 102 (45-117) U/L Albumin 4.9 (3.4-5.0) g/dL - Imaging Impressions Cervical Spine CT 12/04/17 01:14 CONCLUSION: No evidence of fracture. Chest X-Ray 12/04/17 01:14 CONCLUSION: No acute cardiopulmonary disease identified. Head CT 12/04/17 01:14 CONCLUSION: No acute intracranial findings. . Caprini VTE Risk Assessment Caprini VTE Risk Assessment: No/Low Risk (score <= 1) Caprini Risk Assessment Model: Point Value = 1 Point Value = 2 Point Value = 3 Point Value = 5 Age 41-60 Minor surgery BMI > 25 kg/m2 Swollen legs Varicose veins or History of unexplained or recurrent spontaneous Oral contraceptives or hormone replacement Sepsis (< 1 month) Serious lung disease, including pneumonia (< 1 month) Abnormal pulmonary function Acute myocardial infarction Congestive heart failure (< 1 month) History of inflammatory bowel disease Medical patient at bed rest Age 61-74 Arthroscopic surgery Major open surgery (> 45 min) Laparoscopic surgery (> 45 min) Malignancy Confined to bed (> 72 hours) Immobilizing plaster cast Central venous access Age >= 75 History of VTE Family history of VTE Factor V Leiden Prothrombin [id number] Lupus anticoagulant Anticardiolipin antibodies Elevated serum homocysteine Heparin-induced thrombocytopenia Other congenital or acquired thrombophilia Stroke (< 1 month) Elective arthroplasty Hip, pelvis, or leg fracture Acute spinal cord injury (< 1 month) Prophylaxis Regimen: Total Risk Factor Score Risk Level Prophylaxis Regimen 0-1 Low Early ambulation 2 Moderate Order ONE of the following: *Sequential Compression Device (SCD) *Heparin 5000 units SQ BID 3-4 Higher Order ONE of the following medications: *Heparin 5000 units SQ TID *Enoxaparin/Lovenox 40 mg SQ daily (WT < 150 kg, CrCl > 30 mL/min) *Enoxaparin/Lovenox 30 mg SQ daily (WT < 150 kg, CrCl > 10-29 mL/min) *Enoxaparin/Lovenox 30 mg SQ BID (WT < 150 kg, CrCl > 30 mL/min) AND/OR *Sequential Compression Device (SCD) 5 or more Highest Order ONE of the following medications: *Heparin 5000 units SQ TID (Preferred with Epidurals) *Enoxaparin/Lovenox 40 mg SQ daily (WT < 150 kg, CrCl > 30 mL/min) *Enoxaparin/Lovenox 30 mg SQ daily (WT < 150 kg, CrCl > 10-29 mL/min) *Enoxaparin/Lovenox 30 mg SQ BID (WT < 150 kg, CrCl > 30 mL/min) AND *Sequential Compression Device (SCD) Assessment and Plan - Plan //Acute kidney injury Creatinine 3.96 from normal baseline. Likely secondary to dehydration. Aggressive IV fluid replacement. Check creatine kinase. Check urinalysis. Check renal ultrasound. If he does not improve, will consult nephrology. //Toxic encephalopathy //Cocaine positive Patient is known FLOKKA user Patient with extreme agitation requiring Ativan in the ER. Head CT with no acute findings. //Anion gap metabolic acidosis. -Anion gap of 17. CK pending. Will check ketones and lactate. //Leukocytosis. Likely stress-induced. Tachycardia is from agitation. No signs of infection. Continue to monitor.
[2017-12-04 06:24] LABS: CKMB Percent 0.3 % (0.0-4.0); Creatine Kinase MB 8.8 ng/mL (0.5-3.6)
[2017-12-04] MEDS: Sod Chloride 0.9% Inj 1,000 ML IV.CONT SCH ×4 (07:08→21:17)
[2017-12-04] MEDS ORDERED: hydrALAZINE HCl Inj 20 MG/ML Vial IV.PUSH PRN (08:14)
--- NOTE | 2017-12-04 09:01 | US ---
EXAM DATE: 12/04/2017 12:00 AM EDT AGE/SEX: 37 years / Male INDICATIONS: Increased lab values. CLINICAL DATA: This is the patient's initial encounter. Patient reports that signs and symptoms have been present for 1 day and indicates a pain score of 0/10. MEDICAL/SURGICAL HISTORY: Hypertension. None. [place] [facility] [place] 05/06/2015. . MEASUREMENTS: Right Kidney:__10.7 x 4.5 x 5.0 cm Left Kidney:__11.7 x 6.0 x 5.1 cm FINDINGS: Right Kidney: Increased echotexture. No mass or hydronephrosis. Left Kidney: Increased echotexture. No mass or hydronephrosis. Bladder: Within normal limits given the degree of distension. Other: None. CONCLUSION: 1. Echogenic kidneys consistent with medical renal disease. 2. No evidence for obstructive uropathy. Electronically signed by: Dwayne Chester MD 12/04/2017 8:59 AM EDT
[2017-12-04 10:18] LABS: Calcium 8.9 mg/dL (8.5-10.1); Carbon Dioxide 24.4 meq/L (21.0-32.0); Potassium 3.7 meq/L (3.5-5.1)
[2017-12-04 10:49] LABS: CKMB Percent 0.4 % (0.0-4.0)
[2017-12-04 13:52] LABS: Calcium 8.5 mg/dL (8.5-10.1); Potassium 3.6 meq/L (3.5-5.1)
[2017-12-04 14:21] LABS: CKMB Percent 0.4 % (0.0-4.0); Creatine Kinase MB 7.9 ng/mL (0.5-3.6)
[2017-12-04] MEDS ORDERED: hydrALAZINE 25 MG Tablet PO ONE (15:15)
--- NOTE | 2017-12-04 17:43 | P.CONNP ---
History of Present Illness Service: Nephrology Consult date: 12/04/17 Requesting Physician: Aman Ross Reason for Consult: Acute renal failure Primary Care Provider: No Primary Care Physician Family Provider: No Primary Care Physician History of Present Illness: A 37-year-old -[place] male With history of drug overdose, cocaine metabolite positive, acute renal failure, dehydration and rhabdomyolysis. Apparently patient was found facedown on the grass and taken to the emergency after drug overdose, patient is waking up but appears to be confused. Acute renal failure is resolving with hydration, Creatinine declined from 2.5 to 2.05. Review of Systems unobtainable due to mental status PMFSH - History History Provided By: Medical Record - Medical / Surgical Hx Neg / Unobtainable Medical Problems Denied: Unable to Obtain - Medical History Medical History: Medical History (Last Reviewed 12/04/17 @ 02:42 by Edgar Hayden DO) Hypertension Patient denies medical problems - Surgical History Surgical History: Surgical History (Last Reviewed 12/04/17 @ 02:42 by Edgar Hayden DO) No history of previous surgery - Family History Family History: Family History (Last Updated 12/04/17 @ 05:54 by Aman Ross MD) Other Family history unobtainable Family history unobtainable due to patient's condition - Social History I have reviewed the patient's Social History: Yes - Tobacco History Second Hand Smoke Exposure: Yes Smoking Status: Unknown if ever smoked Tobacco Type: Cigarettes - Alcohol History How Often Do You Have a Drink Containing Alcohol: Unable to Obtain - Substance Use History Substance History: Unable to Obtain - Travel History Recent Travel in the [place] Within the Last 8 Weeks: No Recent Travel Out of the Country Within the Last 8 Weeks: No - Immunization History Tetanus Immunization: Unable to Assess Hx Influenza Vaccine This Season: Unable to Assess Medications and Allergies Active Medications: Active Medications Al Hydroxide/Mg Hydroxide (Milk Of Magnesia Liq) 30 ml PO Q12H PRN PRN Reason: Mild Constipation Bisacodyl (Dulcolax Supp) 10 mg RECTAL DAILY PRN PRN Reason: SEVERE CONSITIPATION Hydralazine HCl (Apresoline Inj) 10 mg IV.PUSH Q4H PRN PRN Reason: HYPERTENSION Sodium Chloride (Ns Inj) 1,000 mls @ 150 mls/hr IV.CONT .Q6H40M [facility] Last Admin: 12/04/17 15:35 Dose: 150 mls/hr Lactulose (Lactulose Liq) 30 ml PO DAILY PRN PRN Reason: SEVERE CONSITIPATION Lorazepam (Ativan Inj) 1 mg IV.PUSH Q4H PRN PRN Reason: AGITATION Last Admin: 12/04/17 08:16 Dose: 1 mg Sennosides (Senokot) 17.2 mg PO Q12H PRN PRN Reason: Moderate Constipation Allergies Allergy/AdvReac Type Severity Reaction Status Date / Time lisinopril Allergy Severe angioedema Verified 12/04/17 01:13 Home Medications Medication Instructions Recorded Confirmed Type No Known Home Medications 11/20/17 12/04/17 History Exam Vital signs: Vital Signs 12/04/17 01:13 12/04/17 01:16 12/04/17 07:32 Temperature 99 F Pulse Rate 93 H 75 Respiratory Rate 18 18 Blood Pressure 150/98 H 129/82 Pulse Oximetry 100 99 12/04/17 08:00 12/04/17 08:27 12/04/17 12:00 Temperature 98.7 F 98.7 F Pulse Rate 67 76 Respiratory Rate 20 18 Blood Pressure 156/124 H 153/100 H 165/100 H Pulse Oximetry 100 95 Intake & Output 12/03/17 12/04/17 12/04/17 18:59 06:59 18:59 Intake Total 1000 / 1000 1999 Balance 1000 / 999 Weight 81.647 kg Intake: IV 1000 / 1000 1999 NS Inj 1,000 ML @ 150 mls/hr IV 1999 .CONT .Q6H40M [facility] Rx#:[id number] NS Inj 1,000 ML @ Wide Open IV. 1000 / 999 SIG BOLUS ONE Rx#:[id number] Narrative: GENERAL: Well-nourished, well-developed patient. SKIN: Warm and dry. HEAD: Normocephalic. EYES: No scleral icterus. No injection or drainage. NECK: Supple, trachea midline. No JVD or lymphadenopathy. CARDIOVASCULAR: Regular rate and rhythm without murmurs, gallops, or rubs. RESPIRATORY: Breath sounds equal bilaterally. No accessory muscle use. GASTROINTESTINAL: Abdomen soft, non-tender, nondistended. EXTREMITIES: As above NEUROLOGICAL: confused Results - Lab Results 12/04/17 01:20 12/04/17 13:00 Most recent lab results Calcium 8.5 mg/dL (8.5-10.1) 12/04/17 13:00 Assessment and Plan - Assessment (1) Acute renal failure Code(s): N17.9 - Acute kidney failure, unspecified Status: Acute (2) Rhabdomyolysis Code(s): M62.82 - Rhabdomyolysis Status: Acute (3) Cocaine abuse Code(s): F14.10 - Cocaine abuse, uncomplicated Status: Acute - Plan I agree with hydration Normal saline at 150 cc an hour Rhabdomyolysis is resolving Kidney functions already improving, patient is admitted due to drug overdose and will need counseling Avoid nephrotoxic agents Follow BMP Nephrology to follow PRN bases
--- NOTE | 2017-12-04 17:46 | P.PN ---
Subjective Interval history: Patient transferred to [facility], patient reports that his sx are due to FLOKKA use, he has used this before with no issues, patient adamant that he is hungry and wants to eat Physical Exam Vital signs: Vital Signs 12/04/17 01:13 12/04/17 01:16 12/04/17 07:32 Temperature 99 F Pulse Rate 93 H 75 Respiratory Rate 18 18 Blood Pressure 150/98 H 129/82 Pulse Oximetry 100 99 12/04/17 08:00 12/04/17 08:27 12/04/17 12:00 Temperature 98.7 F 98.7 F Pulse Rate 67 76 Respiratory Rate 20 18 Blood Pressure 156/124 H 153/100 H 165/100 H Pulse Oximetry 100 95 Intake & Output 12/03/17 12/04/17 12/04/17 18:59 06:59 18:59 Intake Total 1000 / 1000 1999 Balance 1000 / 999 Weight 81.647 kg Intake: IV 999 / 1000 1999 NS Inj 1,000 ML @ 150 mls/hr IV 1999 .CONT .Q6H40M [facility] Rx#:[id number] NS Inj 1,000 ML @ Wide Open IV. 1000 / 1000 SIG BOLUS ONE Rx#:[id number] Narrative: GENERAL: well nourished, AA male, in NAD, poor hygiene. SKIN: Warm and dry. Multiple tattoos. HEAD: Normocephalic. PERRLA. No scleral icterus. No injection or drainage. MOM, poor dentition. NECK: Supple, trachea midline. No JVD or lymphadenopathy. CARDIOVASCULAR: Regular rate and rhythm without murmurs, gallops, or rubs. RESPIRATORY: Breath sounds equal bilaterally. No accessory muscle use. GASTROINTESTINAL: Abdomen soft, non-tender, nondistended. MUSCULOSKELETAL: No cyanosis, or edema. BACK: Nontender without obvious deformity. No CVA tenderness. NEURO: lethargic but arousabble, AAOX3, agitated when questioned - Urinary Catheter Management Indwelling Urethral Catheter Cath placed during this visit: yes Reason for continuing: Acute urinary retention Insertion date: 12/04/17 Insertion time: 12:47 Results - Labs CBC & Chem 7: 12/04/17 01:20 12/04/17 13:00 Laboratory Results - last 24 hr 12/04/17 12/04/1712/04/18 01:20 01:20 01:20 WBC 13.7 H RBC 4.27 L Hgb 14.1 Hct 41.7 MCV 97.5 MCH 33.1 MCHC 33.9 RDW 13.2 Plt Count 300 D MPV 8.0 Neut % (Auto) 79.3 H Lymph % (Auto) 9.4 Cross % (Auto) 10.5 H Eos % (Auto) 0.1 Baso % (Auto) 0.7 Neut # (Auto) 10.8 H Lymph # (Auto) 1.3 Cross # (Auto) 1.4 H Eos # (Auto) 0.0 Baso # (Auto) 0.1 WBC Differential . Differential Comment Auto diff final Sodium 135 L Potassium 3.7 Chloride 95 L Carbon Dioxide 23.3 Anion Gap 17 H BUN 31 H Creatinine 3.96 H Estimated GFR 21 L POC Glucose Random Glucose 79 Lactic Acid Calcium 8.8 Total Bilirubin 1.1 H Direct Bilirubin Indirect Bilirubin AST 59 H ALT 34 Alkaline Phosphatase 102 Total Creatine Kinase CK-MB (CK-2) CK-MB (CK-2) % Total Protein 9.4 H Albumin 4.9 TSH 1.770 Salicylates 2.3 L Urine Opiates Screen Acetaminophen Less than 2.0 L Ur Barbiturates Screen Ur Amphetamine Screen Ur Amphetamines Screen U Benzodiazepines Scrn Urine Cocaine Screen U Cannabinoids Screen Serum Alcohol Less than 3 12/04/17 12/04/17 12/04/17 01:20 01:30 01:30 WBC RBC Hgb Hct MCV MCH MCHC RDW Plt Count MPV Neut % (Auto) Lymph % (Auto) [place] % (Auto) Eos % (Auto) Baso % (Auto) Neut # (Auto) Lymph # (Auto) [place] # (Auto) Eos # (Auto) Baso # (Auto) WBC Differential Differential Comment Sodium Potassium Chloride Carbon Dioxide Anion Gap BUN Creatinine Estimated GFR POC Glucose Random Glucose Lactic Acid Calcium Total Bilirubin Direct Bilirubin Indirect Bilirubin AST ALT Alkaline Phosphatase Total Creatine Kinase 2549 H CK-MB (CK-2) 8.8 H CK-MB (CK-2) % 0.3 Total Protein Albumin TSH Salicylates Urine Opiates Screen Cancelled Neg Acetaminophen Ur Barbiturates Screen Cancelled Neg Ur Amphetamine Screen Neg Ur Amphetamines Screen Cancelled U Benzodiazepines Scrn Cancelled Neg Urine Cocaine Screen Cancelled Pos H U Cannabinoids Screen Cancelled Neg Serum Alcohol 12/04/17 12/04/17 12/04/17 07:29 09:25 10:01 WBC RBC Hgb Hct MCV MCH MCHC RDW Plt Count MPV Neut % (Auto) Lymph % (Auto) Cross % (Auto) Eos % (Auto) Baso % (Auto) Neut # (Auto) Lymph # (Auto) Cross # (Auto) Eos # (Auto) Baso # (Auto) WBC Differential Differential Comment Sodium 136 Potassium 3.7 Chloride 102 Carbon Dioxide 24.4 Anion Gap 10 BUN 29 H Creatinine 2.52 H Estimated GFR 35 L POC Glucose Random Glucose 72 L Lactic Acid 0.9 Calcium 8.9 Total Bilirubin 1.1 H Direct Bilirubin 0.2 Indirect Bilirubin 0.9 H AST ALT Alkaline Phosphatase Total Creatine Kinase 2100 H CK-MB (CK-2) 9.0 H CK-MB (CK-2) % 0.4 Total Protein Albumin TSH Salicylates Urine Opiates Screen Acetaminophen Ur Barbiturates Screen Ur Amphetamine Screen Ur Amphetamines Screen U Benzodiazepines Scrn Urine Cocaine Screen U Cannabinoids Screen Serum Alcohol 12/04/17 12/04/17 13:00 15:00 WBC RBC Hgb Hct MCV MCH MCHC RDW Plt Count MPV Neut % (Auto) Lymph % (Auto) Cross % (Auto) Eos % (Auto) Baso % (Auto) Neut # (Auto) Lymph # (Auto) Cross # (Auto) Eos # (Auto) Baso # (Auto) WBC Differential Differential Comment Sodium 140 Potassium 3.6 Chloride 104 Carbon Dioxide 25.0 Anion Gap 11 BUN 26 H Creatinine 2.05 H Estimated GFR 44 L POC Glucose 84 Random Glucose 69 L Lactic Acid Calcium 8.5 Total Bilirubin Direct Bilirubin Indirect Bilirubin AST ALT Alkaline Phosphatase Total Creatine Kinase 1810 H CK-MB (CK-2) 7.9 H CK-MB (CK-2) % 0.4 Total Protein Albumin TSH Salicylates Urine Opiates Screen Acetaminophen Ur Barbiturates Screen Ur Amphetamine Screen Ur Amphetamines Screen U Benzodiazepines Scrn Urine Cocaine Screen U Cannabinoids Screen Serum Alcohol - Imaging Impressions Abdomen/Bladder Ultrasound 12/04/17 00:00 CONCLUSION: 1. Echogenic kidneys consistent with medical renal disease. 2. No evidence for obstructive uropathy. Cervical Spine CT 12/04/17 01:14 CONCLUSION: No evidence of fracture. Chest X-Ray 12/04/17 01:14 CONCLUSION: No acute cardiopulmonary disease identified. Head CT 12/04/17 01:14 CONCLUSION: No acute intracranial findings. . Assessment and Plan - Plan 37 y/o AAM with no significant PMHx admitted for IP mgmt of Drug Overdose with Rhabdo and MAYDA, HD#1 1. Acute Kindey Injury -Likely due to dehydration -Creatinine 3.96 on admission, improved to 2.05 this afternoon -Cont. NS at 150ml/hr -Will get U/A to R/O infection -Nephrology on board, appreciate assistance with mgmt 2. Rhabdomyolysis -CK improved to 1810 (2100 on admission) -IVF at 150ml/hr -F/U CK in AM 3. Toxic Encephalopathy/Drug Use -UDS still pending but so far Cocaine positive Patient is known FLOKKA user Patient with extreme agitation requiring Ativan IV PRN -Head CT with no acute findings -Encourage cessation of drug use 4. Elevated Blood Pressures -Denies Hx of HTN -Related to Drug Use -Hydralazine IV PRN -Cont. to monitor 5. Leukocytosis -Likely stress-induced -afebrile -F/u U/A results -Neg CXR 6. DVT PPX: SCD's 7. F/U blood pressure, BMP and CK in AM Code Status: full Discussed Condition With: patient and RN
[2017-12-04 22:20] LABS: Bacteria,Urine Few /hpf; Bilirubin,Urine Negative (Negative); Clarity,Urine Hazy (Clear); Color,Urine Yellow (Yellw/Straw); Glucose,Urine (UA) Negative (Negative); Hyaline Casts,Urine 4 /lpf (0-3); Leukocyte Esterase,Urine Negative (Negative); Mucus,Urine Few /lpf (Occasional); Nitrite,Urine Negative (Negative); Specific Gravity,Urine 1.027 (1.002-1.035); Squamous Epithelial Cell,Urine <1 /hpf (0-5)
[2017-12-05] MEDS: Sod Chloride 0.9% Inj 1,000 ML IV.CONT SCH (03:47)
[2017-12-05 05:11] VITALS: BP 122/73; PULSE 84; RESP 18; TEMP 98.7; O2SAT 97
[2017-12-05 06:58] LABS: Baso % (Auto) 0.3 % (0.0-2.0); Eos # (Auto) 0.1 th/mm3 (0.0-0.4); Hematocrit 38.6 % (39.0-51.0); Hemoglobin 13.2 gm/dL (13.0-17.0); Lymph # (Auto) 1.2 th/mm3 (1.0-4.8); Mean Corpuscular HGB Conc 34.3 % (32.0-36.0); Mean Corpuscular Hemoglobin 33.7 pg (27.0-34.0); Mean Corpuscular Volume 98.2 fL (80.0-100.0); Mean Platelet Volume 8.6 fL (7.0-11.0); Mono # (Auto) 0.8 th/mm3 (0.0-0.9); Mono % (Auto) 8.9 % (0.0-8.0); Neut # (Auto) 7.1 th/mm3 (1.8-7.7); Neut % (Auto) 76.8 % (16.0-70.0); Platelet Count 261 th/mm3 (150-450); Red Blood Count 3.93 mil/mm3 (4.50-5.90); White Blood Count 9.3 th/mm3 (4.0-11.0)
[2017-12-05 07:48] LABS: Albumin 3.3 g/dL (3.4-5.0); Calcium 8.3 mg/dL (8.5-10.1); Magnesium 2.4 mg/dL (1.5-2.5); Phosphorus 2.6 mg/dL (2.5-4.9)
[2017-12-05 07:51] LABS: Potassium 3.7 meq/L (3.5-5.1)
[2017-12-05 09:19] LABS: CKMB Percent 0.3 % (0.0-4.0); Creatine Kinase MB 3.6 ng/mL (0.5-3.6)
--- NOTE | 2017-12-05 10:21 | P.PN ---
Subjective Interval history: Nursing reports the patient did require four-point restraints sometime since yesterday. He did rip out all four-point restraints and walk down the hallway naked. He did demonstrate intermittent confusion. Is alert only to himself and sometimes place. Nursing reports that the patient was holding his groin at times after he also pulled out his Becker catheter by himself yesterday. Patient says he is very hungry, seems to be sleeping but demonstrates highly erratic unpredictable spontaneous movements. Has spells where he just yells out at times. Nursing reports that Ativan does not calm him down. Physical Exam Vital signs: Vital Signs 12/04/17 12:00 12/04/17 15:00 12/04/17 20:00 Temperature 98.7 F Pulse Rate 76 81 76 Respiratory Rate 18 Blood Pressure 165/100 H Pulse Oximetry 95 12/04/17 21:00 12/04/17 21:12 12/04/17 22:00 Temperature 99.0 F Pulse Rate 58 L 86 76 Respiratory Rate 18 Blood Pressure 145/88 H Pulse Oximetry 98 12/04/17 23:00 12/05/17 00:00 12/05/17 04:00 Temperature 98.6 F 98.7 F Pulse Rate 78 75 84 Respiratory Rate 20 18 Blood Pressure 130/89 122/73 Pulse Oximetry 93 L 97 Intake & Output 12/04/17 12/05/17 12/05/17 18:59 06:59 18:59 Intake Total 1999 Output Total 600 / 600 Balance 1400 / 1400 Weight 81.6 kg Intake: IV 1999 NS Inj 1,000 ML @ 150 mls/hr IV 1999 .CONT .Q6H40M [facility] Rx#:[id number] Oral 0 / 0 Output: Urine 600 / 600 Narrative: Heart sounds regular rate rhythm, no murmurs Clear lungs bilaterally, unlabored breathing Seems to be resting until you talk to him at which point he starts having spontaneous unpredictable sudden movements with all 4 extremities, tossing and turning his body, seems to have quite of a labile mood, otherwise can go back to sleep easily. Penis examined with nurse present, there seems to be no obvious trauma at this time, normal-appearing meatus with a slightly dilated opening with no tearing or blood noted - Urinary Catheter Management Indwelling Urethral Catheter Cath placed during this visit: yes, but has since been removed by the nurse Reason for continuing: Acute urinary retention Insertion date: 12/04/17 Insertion time: 12:47 Removal date: 12/04/17 Removal time: 22:00 Results - Labs CBC & Chem 7: 12/05/17 06:04 12/05/17 06:04 Laboratory Results - last 24 hr 12/04/17 12/04/17 12/04/17 09:25 10:01 13:00 WBC RBC Hgb Hct MCV MCH MCHC RDW Plt Count MPV Neut % (Auto) Lymph % (Auto) [place] % (Auto) Eos % (Auto) Baso % (Auto) Neut # (Auto) Lymph # (Auto) [place] # (Auto) Eos # (Auto) Baso # (Auto) WBC Differential Differential Comment Sodium 136 140 Potassium 3.7 3.6 Chloride 102 104 Carbon Dioxide 24.4 25.0 Anion Gap 10 11 BUN 29 H 26 H Creatinine 2.52 H 2.05 H Estimated GFR 35 L 44 L POC Glucose Random Glucose 72 L 69 L Calcium 8.9 8.5 Phosphorus Magnesium Total Bilirubin 1.1 H Direct Bilirubin 0.2 Indirect Bilirubin 0.9 H Total Creatine Kinase 2100 H 1810 H CK-MB (CK-2) 9.0 H 7.9 H CK-MB (CK-2) % 0.4 0.4 Albumin Urine Color Urine Clarity Urine pH Ur Specific [place] Urine Protein Urine Glucose (UA) Urine Ketones Urine Occult Blood Urine Nitrate Urine Bilirubin Urine Urobilinogen Ur Leukocyte Esterase Urine RBC Urine WBC Urine WBC Clumps Ur Squamous Epith Cells Urine Bacteria Hyaline Casts Urine Mucus Ur Microscopic Review 12/04/17 12/04/17 12/05/17 15:00 20:34 06:04 WBC 9.3 RBC 3.93 L Hgb 13.2 Hct 38.6 L MCV 98.2 MCH 33.7 MCHC 34.3 RDW 13.0 Plt Count 261 MPV 8.6 Neut % (Auto) 76.8 H Lymph % (Auto) 13.0 [place] % (Auto) 8.9 H Eos % (Auto) 1.0 Baso % (Auto) 0.3 Neut # (Auto) 7.1 Lymph # (Auto) 1.2 [place] # (Auto) 0.8 Eos # (Auto) 0.1 Baso # (Auto) 0.0 WBC Differential . Differential Comment Auto diff final Sodium Potassium Chloride Carbon Dioxide Anion Gap BUN Creatinine Estimated GFR POC Glucose 84 Random Glucose Calcium Phosphorus Magnesium Total Bilirubin Direct Bilirubin Indirect Bilirubin Total Creatine Kinase CK-MB (CK-2) CK-MB (CK-2) % Albumin Urine Color Yellow Urine Clarity Hazy H Urine pH 5.0 Ur Specific [place] 1.027 Urine Protein 30 H Urine Glucose (UA) Negative Urine Ketones 20 Urine Occult Blood Negative Urine Nitrate Negative Urine Bilirubin Negative Urine Urobilinogen Less than 2 Ur Leukocyte Esterase Negative Urine RBC 2 Urine WBC 9 H Urine WBC Clumps Rare H Ur Squamous Epith Cells <1 Urine Bacteria Few H Hyaline Casts 4 Urine Mucus Few H Ur Microscopic Review Not Reportable 12/05/17 06:04 WBC RBC Hgb Hct MCV MCH MCHC RDW Plt Count MPV Neut % (Auto) Lymph % (Auto) [place] % (Auto) Eos % (Auto) Baso % (Auto) Neut # (Auto) Lymph # (Auto) [place] # (Auto) Eos # (Auto) Baso # (Auto) WBC Differential Differential Comment Sodium 138 Potassium 3.7 Chloride 104 Carbon Dioxide 25.0 Anion Gap 9 BUN 24 H Creatinine 1.55 H Estimated GFR 61 L POC Glucose Random Glucose 110 H Calcium 8.3 L Phosphorus 2.6 Magnesium 2.4 Total Bilirubin Direct Bilirubin Indirect Bilirubin Total Creatine Kinase 1080 H CK-MB (CK-2) 3.6 CK-MB (CK-2) % 0.3 Albumin 3.3 L D Urine Color Urine Clarity Urine pH Ur Specific [place] Urine Protein Urine Glucose (UA) Urine Ketones Urine Occult Blood Urine Nitrate Urine Bilirubin Urine Urobilinogen Ur Leukocyte Esterase Urine RBC Urine WBC Urine WBC Clumps Ur Squamous Epith Cells Urine Bacteria Hyaline Casts Urine Mucus Ur Microscopic Review Assessment and Plan - Plan 37 y/o AAM with no significant PMHx admitted for IP mgmt of Drug Overdose with Rhabdo and MAYDA, HD#1 1. Acute Kindey Injury -Continue aggressive hydration 2. Rhabdomyolysis -Likely secondary to cocaine and substance abuse, improving. 3. Toxic Encephalopathy/Drug Use -UDS still pending but so far Cocaine positive Patient is known FLOKKA user -We will switch from Ativan to Geodon as needed for agitation -Head CT with no acute findings -Encourage cessation of drug use 4. Elevated Blood Pressures -Denies Hx of HTN -Related to Drug Use -Improved 5. Leukocytosis -Resolved 6. DVT PPX: SCD's Addendum:Patient is very labile in his mood. Responded nicely to Geodon but upon waking up he is found to be on the floor instead of having normal conversations he yells and screams. Case discussed with psychiatry. I am Gutierrez Acting the patient. Patient is hemodynamically stable for psych facility. He will need medicine to follow him for management for rhabdomyolysis and LANNY both of which are already stabilizing.
--- NOTE | 2017-12-05 16:31 | P.CONPSY ---
Provisional Diagnosis Admission Date: December 04, 2017 05:28 [place] I.: Substance-induced psychosis, cocaine and methamphetamines use disorder History of Present Illness Service: Medicine Primary Care Provider: No Primary Care Physician Family Provider: No Primary Care Physician History of Present Illness: The patient is a 37-year-old -[place] man, with a psychiatric history of polysubstance dependence including methamphetamines, flakka, cocaine, marijuana, substance-induced psychosis, previous ER visits on the [place] at related with substance intoxication. He was brought in by EMS, having been found outside a detention house down in the grass. To this moment the patient has being sedated, unable to participate in conversations. However, this morning he woke up, became increasingly agitated, aggressive, was very difficult to redirect, and had to be manually and chemically restrained in order to calm down. For this reason, a my psychiatric evaluation at this moment , the patient is found sleeping, not able to provide any information for the psychiatric assessment. I have discussed the case was widely with the primary medical team and nurses. Even the administration in the hospital is very concerned about the behavior of this patient. For this reason we have concluded that it would be safe to Gutierrez act the patient and admit him in psychiatry. Has been treated medically for 1. Acute [place] Injury -Continue aggressive hydration 2. Rhabdomyolysis -Likely secondary to cocaine and substance abuse, improving. 3. Toxic Encephalopathy/Drug Use -UDS still pending but so far Cocaine positive Patient is known FLOKKA user -We will switch from Ativan to Geodon as needed for agitation -Head CT with no acute findings -Encourage cessation of drug use 4. Elevated Blood Pressures -Denies Hx of HTN -Related to Drug Use -Improved 5. Leukocytosis -Resolved 6. DVT PPX: SCD's PMFSH - History History Provided By: Medical Record - Medical / Surgical Hx Neg / Unobtainable Medical Problems Denied: Unable to Obtain - Medical History Medical History: Medical History (Last Reviewed 12/04/17 @ 02:42 by Edgar Hayden DO) Hypertension Patient denies medical problems - Surgical History Surgical History: Surgical History (Last Reviewed 12/04/17 @ 02:42 by Edgar Hayden DO) No history of previous surgery - Family History Family History: Family History (Last Updated 12/04/17 @ 05:54 by Aman Ross MD) Other Family history unobtainable Family history unobtainable due to patient's condition - Tobacco History Second Hand Smoke Exposure: Yes Smoking Status: Unknown if ever smoked Tobacco Type: Cigarettes - Alcohol History How Often Do You Have a Drink Containing Alcohol: Unable to Obtain - Substance Use History Substance History: Unable to Obtain - Travel History Recent Travel in the [place] Within the Last 8 Weeks: No Recent Travel Out of the Country Within the Last 8 Weeks: No - Immunization History Tetanus Immunization: Unable to Assess Hx Influenza Vaccine This Season: Unable to Assess Medications and Allergies Active Medications: Active Medications Al Hydroxide/Mg Hydroxide (Milk Of Magnesia Liq) 30 ml PO Q12H PRN PRN Reason: Mild Constipation Bisacodyl (Dulcolax Supp) 10 mg RECTAL DAILY PRN PRN Reason: SEVERE CONSITIPATION Hydralazine HCl (Apresoline Inj) 10 mg IV.PUSH Q4H PRN PRN Reason: HYPERTENSION Sodium Chloride (Ns Inj) 1,000 mls @ 150 mls/hr IV.CONT .Q6H40M [facility] Last Admin: 12/05/17 03:47 Dose: Not Given Lactulose (Lactulose Liq) 30 ml PO DAILY PRN PRN Reason: SEVERE CONSITIPATION Sennosides (Senokot) 17.2 mg PO Q12H PRN PRN Reason: Moderate Constipation Ziprasidone (Geodon Inj) 10 mg IM Q6H PRN PRN Reason: AGITATION AND/OR HALLUCINATION Allergies Allergy/AdvReac Type Severity Reaction Status Date / Time lisinopril Allergy Severe angioedema Verified 12/04/17 01:13 Home Medications Medication Instructions Recorded Confirmed Type No Known Home Medications 11/20/17 12/04/17 History Exam Vital signs: Vital Signs 12/04/17 20:00 12/04/17 21:00 12/04/17 21:12 Temperature 99.0 F Pulse Rate 76 58 L 86 Respiratory Rate 18 Blood Pressure 145/88 H Pulse Oximetry 98 12/04/17 22:00 12/04/17 23:00 12/05/17 00:00 Temperature 98.6 F Pulse Rate 76 78 75 Respiratory Rate 20 Blood Pressure 130/89 Pulse Oximetry 93 L 12/05/17 04:00 Temperature 98.7 F Pulse Rate 84 Respiratory Rate 18 Blood Pressure 122/73 Pulse Oximetry 97 Intake & Output 12/04/17 12/05/17 12/05/17 18:59 06:59 18:59 Intake Total 1999 Output Total 600 / 600 Balance 1400 / 1400 Weight 81.6 kg Intake: IV 1999 NS Inj 1,000 ML @ 150 mls/hr IV 1999 .CONT .Q6H40M ADRIÁN Rx#:[id number] Oral 0 / 0 Output: Urine 600 / 600 Mental Status Examination Appearance: Dirty, Disheveled Consciousness: Obtunded (MSE limited) Assessment and Plan - Assessment (1) Unspecified psychosis Code(s): F29 - Unspecified psychosis not due to a substance or known physiological condition Status: Acute - Plan Plan: The patient is a 37-year-old -[place] man, with a psychiatric history of polysubstance dependence including methamphetamines, flakka, cocaine, marijuana, substance-induced psychosis, previous ER visits on the [place] at related with substance intoxication. He was brought in by EMS, having been found outside a detention house down in the grass. To this moment the patient has being sedated, unable to participate in conversations. However, this morning he woke up, became increasingly agitated, aggressive, was very difficult to redirect, and had to be manually and chemically restrained in order to calm down. For this reason, a my psychiatric evaluation at this moment , the patient is found sleeping, not able to provide any information for the psychiatric assessment. I have discussed the case was widely with the primary medical team and nurses. Even the administration in the hospital is very concerned about the behavior of this patient. For this reason we have concluded that it would be safe to Gutierrez act the patient and admit him in psychiatry. Order Zyprexa 10 mg IM now for agitation and aggressive behavior [facility] protocol Ordered 5 mg of Haldol twice daily for psychosis. Assault precaution Transferred to psychiatry was medically appropriate. Justification for Continued Inpatient Stay: To be admitted in psychiatry was medically appropriate.
== END 2017-12-05 16:53 ==
LOC: NEPC 01:07 → NEDA 05:28 → NEPGCP 08:06 → HCIS 19:48
PROVIDERS: ADMIT Hospitalist; ATTEND Hospitalist

== ENCOUNTER 2017-12-05 17:47 | Inpatient (IN) ==
[2017-12-05] MEDS ORDERED: Haloperidol Inj 5 MG/ML Ampul IM ONE (20:30)
[2017-12-05] MEDS ORDERED: Aluminum/Magnesium/Simethacone Susp 30 ML UDC PO PRN (20:46)
[2017-12-05] MEDS ORDERED: Acetaminophen 325 MG Tablet PO PRN (20:46)
[2017-12-05] MEDS ORDERED: Melatonin 5 MG Tablet PO PRN (20:46)
[2017-12-06 06:46] VITALS: O2SAT 97
--- NOTE | 2017-12-06 07:46 | P.CONIM ---
History of Present Illness Primary Care Provider: UNKNOWN [facility] - History History Provided By: Medical Record - Medical History Medical History: Medical History (Last Reviewed 12/04/17 @ 02:42 by Edgar Hayden DO) Hypertension Patient denies medical problems - Surgical History Surgical History: Surgical History (Last Reviewed 12/04/17 @ 02:42 by Edgar Hayden DO) No history of previous surgery - Family History Family History: Family History (Last Updated 12/04/17 @ 05:54 by Aman Ross MD) Other Family history unobtainable Family history unobtainable due to patient's condition - Tobacco History Second Hand Smoke Exposure: Yes Smoking Status: Unknown if ever smoked Tobacco Type: Cigarettes - Alcohol History How Often Do You Have a Drink Containing Alcohol: Unable to Obtain - Substance Use History Substance History: Unable to Obtain Medications and Allergies Active Medications: Active Medications Acetaminophen (Tylenol) 650 mg PO Q4H PRN PRN Reason: Pain 1-5 or Temp >101F Al Hydrox/Mg Hydrox/Simethicone (Mag-Al Plus Susp Liq) 30 ml PO Q6H PRN PRN Reason: DYSPEPSIA Al Hydroxide/Mg Hydroxide (Milk Of Magnesia Liq) 30 ml PO Q12H PRN PRN Reason: Mild Constipation Amlodipine Besylate (Norvasc) 5 mg PO DAILY ADRIÁN Melatonin (Melatonin) 5 mg PO HS PRN PRN Reason: INSOMNIA Nicotine (Habitrol 21 Mg Patch.24 Hr) 1 patch T-DERMAL DAILY PRN PRN Reason: Nicotine craving Patch Removal (Remove Old Patch) 1 each T-DERMAL DAILY ADRIÁN Allergies Allergy/AdvReac Type Severity Reaction Status Date / Time lisinopril Allergy Severe angioedema Verified 12/04/17 01:13 Home Medications Medication Instructions Recorded Confirmed Type No Known Home Medications 11/20/17 12/04/17 History Exam Vital signs: Vital Signs 12/06/17 06:44 Temperature 97.9 F Pulse Rate 76 Blood Pressure 164/89 H Pulse Oximetry 97 Intake & Output 12/05/17 12/06/17 12/06/17 18:59 06:59 18:59 Weight 95.254 kg Assessment and Plan - Plan elevated bP, start on norvasc
[2017-12-06] MEDS ORDERED: amLODIPine 5 MG Tablet PO SCH (09:00)
--- NOTE | 2017-12-06 09:38 | P.PN ---
Subjective Interval history: Patient doing well, reports that he is tolerating PO and hydrating well. Patient reports that he is stressed and no longer wants to live. Physical Exam Vital signs: Vital Signs 12/06/17 06:44 Temperature 97.9 F Pulse Rate 76 Blood Pressure 164/89 H Pulse Oximetry 97 Intake & Output 12/05/17 12/06/17 12/06/17 18:59 06:59 18:59 Weight 95.254 kg Narrative: GENERAL: well nourished, AAM, in NAD SKIN: Warm and dry. HEENT: Normocephalic. No scleral icterus. No injection or drainage. PERRLA, MOM. CARDIOVASCULAR: Regular rate and rhythm without murmurs, gallops, or rubs. RESPIRATORY: Breath sounds equal bilaterally. No accessory muscle use. GASTROINTESTINAL: Abdomen soft, non-tender, nondistended. MUSCULOSKELETAL: No cyanosis, or edema. NEURO: AAOx3, aggressive and angry when asked questions initially but pleasant towards end of visit. Results - Labs CBC & Chem 7: 12/06/17 11:17 12/06/17 11:17 Assessment and Plan - Assessment (1) Polysubstance abuse Code(s): F19.10 - Other psychoactive substance abuse, uncomplicated Status: Acute (2) Acute renal failure Code(s): N17.9 - Acute kidney failure, unspecified Status: Acute (3) Cocaine abuse Code(s): F14.10 - Cocaine abuse, uncomplicated Status: Acute (4) Rhabdomyolysis Code(s): M62.82 - Rhabdomyolysis Status: Acute (5) Hypertension Code(s): I10 - Essential (primary) hypertension Status: Acute - Plan 37 y/o AAM with no significant PMHx admitted for IP mgmt of Drug Overdose with Rhabdo and MAYDA, HD#2 1. Acute Kidney Injury, resolved -Likely due to dehydration -Creatinine 3.96 on admission, resolved to 1.11. today -s/p IVF's -Nephrology on board, appreciate assistance with mgmt 2. Rhabdomyolysis, resolved -CK improved to 471 (2100 on admission) -s/p IVF -F/U CK in AM -Encourage PO hydration 3. Toxic Encephalopathy/Drug Use, resolved -UDS Cocaine positive, known FLOKKA user Patient with extreme agitation requiring Ativan IV PRN on admission -Head CT with no acute findings -Encourage cessation of drug use 4. Elevated Blood Pressures, poorly controlled overnight -Denies Hx of HTN -Started on Amlodipine during hospitalization, increase to 10mg QD today -Cont. to monitor 5. Leukocytosis, resolved 7.1 today -Likely stress-induced, afebrile -Neg U/A -Neg CXR 6. DVT PPX: SCD's 7. Dispo: F/U blood pressure, BMP and CK in AM Code Status: full Discussed Condition With: patient, RN
[2017-12-06 12:07] LABS: Baso % (Auto) 0.5 % (0.0-2.0); Eos # (Auto) 0.1 th/mm3 (0.0-0.4); Eos % (Auto) 0.9 % (0.0-4.0); Hematocrit 36.7 % (39.0-51.0); Hemoglobin 12.7 gm/dL (13.0-17.0); Lymph # (Auto) 1.1 th/mm3 (1.0-4.8); Lymph % (Auto) 15.6 % (9.0-44.0); Mean Corpuscular HGB Conc 34.7 % (32.0-36.0); Mean Corpuscular Hemoglobin 33.7 pg (27.0-34.0); Mean Corpuscular Volume 97.1 fL (80.0-100.0); Mono # (Auto) 0.8 th/mm3 (0.0-0.9); Mono % (Auto) 10.7 % (0.0-8.0); Neut # (Auto) 5.1 th/mm3 (1.8-7.7); Neut % (Auto) 72.3 % (16.0-70.0); Platelet Count 236 th/mm3 (150-450); Red Blood Count 3.78 mil/mm3 (4.50-5.90); Red Cell Distribution Width 13.1 % (11.6-17.2); White Blood Count 7.1 th/mm3 (4.0-11.0)
[2017-12-06 12:26] LABS: Alanine Aminotransferase 24 U/L (12-78); Albumin 3.1 g/dL (3.4-5.0); Anion Gap 6 meq/L (5-15); Aspartate Aminotransferase 19 U/L (15-37); Blood Urea Nitrogen 16 mg/dL (7-18); Calcium 8.1 mg/dL (8.5-10.1); Carbon Dioxide 28.5 meq/L (21.0-32.0); Chloride 107 meq/L (98-107); Cholesterol 131 mg/dL (120-200); Glomerular Filtration Rate Greater Than 89 mL/min (>89); Glucose,Random 96 mg/dL (74-106); Potassium 3.9 meq/L (3.5-5.1); Sodium 141 meq/L (136-145)
--- NOTE | 2017-12-06 12:31 | P.HPPSY ---
Provisional Diagnosis Admission Date: December 05, 2017 17:47 [place] I.: Unspecified Psychosis, rule out substance induced psychotic disorder, polysubstance use disorder Competence Certification of Person's Competence To Provide Express and Informed Consent I have personally examined Noe Villegas, a person being served at [facility] on, December 06, 2017 1230. Express and informed consent means consent voluntarily given in writing, by a competent person, after sufficient explanation and disclosure of the subject matter involved to enable the person to make a knowing and willful decision without any element of force, fraud, deceit, duress, or other form of constraint or coercion. This person is 18 years of age or older, is not now known to be incompetent to consent to treatment with a guardian advocate, and does not have a health care surrogate or proxy currently making medical treatment decisions. I have found this person to be one of the following: [xxx] Competent to provide express and informed consent, as defined above, for voluntary admission to this facility and is competent to provide express and informed consent for treatment. He/she has the consistent capacity to make well reasoned, willful, and knowing decisions concerning his or her medical or mental health treatment. The person fully and consistently understands the purpose of the admission for examination/placement and is fully capable of personally exercising all rights assured under [place] Incompetent to provide express and informed consent to voluntary admission, and this is incompetent to provide express and informed consent to treatment. The person must be transferred to involuntary status and a petition for a guardian advocate filed with the Circuit Court. [] Refusing to provide express and informed consent to voluntary admission but is competent to provide express and informed consent for treatment. The person must be discharged or transferred to involuntary status. Form shall be completed within 24 hours of a person's arrival at the receiving facility and filed in the clinical record of each person: 1. Admitted on a voluntary basis 2. Permitted to provide express and informed consent to his/her own treatment 3. Allowed to transfer from involuntary to voluntary status 4. Prior to permitting a person to consent to his or her own treatment after having been previously found incompetent to consent to treatment. History of Present Illness Capacity: Has capacity History of Present Illness: Patient is a 37-year-old -[place] man, homeless, has 1 daughter, unemployed, with a past psychiatric history of polysubstance use disorder, previous psychiatric admissions, previous suicide attempts, with no past medical history, with a substance use history significant for methamphetamines, floccular, cocaine and marijuana, recently treated for acute kidney injury and rhabdomyolysis likely secondary from substance use which patient was noted to have increasingly agitation and aggressive behavior requiring restraints, patient was admitted to the inpatient psychiatry unit for further evaluation and management. As per chart, patient with prior ED visits for substance intoxication. Patient was found lying on ground at sober living facility and was noted to be increasingly agitated and combative requiring restraints. Patient found lying on hospital bed, note to be somnolent, requiring to be woken up several times during interview but able to superficially cooperate with interview. Patient not able to provide much history stating "i don't know " to the majority of questioning. He mentions feeling better and endorses command auditory hallucinations telling him to kill himself. He denies any visual hallucinations, denies any suicidal or homicidal ideations. He mentions wanting to be transported to [facility] for inpatient rehabilitation program. Rest of history unable to obtain due to patient's limited participation in interview. - Inpatient Certification I certify that the inpatient services were ordered in accordance with Medicare regulations governing the order. This includes certification that hospital inpatient services are reasonable and necessary and in the case of services not specified as inpatient-only under 42 CFR 419.22(n), that they are appropriately provided as inpatient services in accordance to with the 2-midnight benchmark under 43 CFR 412.3(e) I certify that inpatient psychiatric hospital services are medically necessary. Evaluation and treatment and/or diagnostic testing are expected to improve the patient's condition. The patient needs on a daily basis, active treatment furnished directly by or requiring the supervision of inpatient psychiatric facility personnel. Estimated Total Length of Stay (Days): 7 Plans for Post Hospital Care: Not yet determined Review of Systems unobtainable due to mental status PMFSH - History History Provided By: Patient, Medical Record - Medical History Medical History: Medical History (Last Reviewed 12/04/17 @ 02:42 by Edgar Hayden DO) Hypertension Patient denies medical problems - Surgical History Surgical History: Surgical History (Last Reviewed 12/04/17 @ 02:42 by Edgar Hayden DO) No history of previous surgery - Family History Family History: Family History (Last Updated 12/04/17 @ 05:54 by Aman Ross MD) Other Family history unobtainable Family history unobtainable due to patient's condition - Tobacco History Second Hand Smoke Exposure: Yes Smoking Status: Unknown if ever smoked Tobacco Type: Cigarettes - Alcohol History How Often Do You Have a Drink Containing Alcohol: Unable to Obtain - Substance Use History Substance History: Active Abuse, Unable to Obtain - Substance Use Type Club/Bilingual Nanny Drugs Status: Active Comment: Patient reports he has been using as much [place] as he can purchase daily. Quality Measures - Psychiatric History Psychological trauma history: unable to obtain due to patient's limited participation in interview. Violence risk to others in the last 6 months: elevated due to recent aggressive behavior Violence risk to self in the last 6 months: low - Substance Abuse History Drug or alcohol use in the past 12 months: unable to obtain due to patient's limited participation in interview. as per chart history of polysubstance use including meth/flakka/cocaine/THC. - Patient Strengths Patient's strengths (minimum of 2): verbal and communicative Medications and Allergies Active Medications: Active Medications Acetaminophen (Tylenol) 650 mg PO Q4H PRN PRN Reason: Pain 1-5 or Temp >101F Al Hydrox/Mg Hydrox/Simethicone (Mag-Al Plus Susp Liq) 30 ml PO Q6H PRN PRN Reason: DYSPEPSIA Al Hydroxide/Mg Hydroxide (Milk Of Magnesia Liq) 30 ml PO Q12H PRN PRN Reason: Mild Constipation Amlodipine Besylate (Norvasc) 10 mg PO DAILY ADRIÁN Diphenhydramine HCl (Benadryl) 50 mg PO HS PRN PRN Reason: INSOMNIA Haloperidol (Haldol) 5 mg PO BID ADRIÁN Hydroxyzine HCl (Atarax) 50 mg PO Q6H PRN PRN Reason: ANXIETY Melatonin (Melatonin) 5 mg PO HS PRN PRN Reason: INSOMNIA Nicotine (Habitrol 21 Mg Patch.24 Hr) 1 patch T-DERMAL DAILY PRN PRN Reason: Nicotine craving Patch Removal (Remove Old Patch) 1 each T-DERMAL DAILY ADRIÁN Allergies Allergy/AdvReac Type Severity Reaction Status Date / Time lisinopril Allergy Severe angioedema Verified 12/04/17 01:13 Home Medications Medication Instructions Recorded Confirmed Type No Known Home Medications 11/20/17 12/04/17 History Results - Labs CBC & Chem 7: 12/07/17 07:07 12/07/17 07:07 Labs: Laboratory Results - last 24 hr 12/06/17 12/06/17 11:17 11:17 WBC 7.1 RBC 3.78 L Hgb 12.7 L Hct 36.7 L MCV 97.1 MCH 33.7 MCHC 34.7 RDW 13.1 Plt Count 236 MPV 8.0 Neut % (Auto) 72.3 H Lymph % (Auto) 15.6 [place] % (Auto) 10.7 H Eos % (Auto) 0.9 Baso % (Auto) 0.5 Neut # (Auto) 5.1 Lymph # (Auto) 1.1 [place] # (Auto) 0.8 Eos # (Auto) 0.1 Baso # (Auto) 0.0 WBC Differential . Differential Comment Auto diff final Sodium 141 Potassium 3.9 Chloride 107 Carbon Dioxide 28.5 Anion Gap 6 BUN 16 Creatinine 1.11 Estimated GFR Greater than 89 Random Glucose 96 Calcium 8.1 L AST 19 ALT 24 Albumin 3.1 L Cholesterol 131 Exam Vital signs: Vital Signs 12/06/17 06:44 Temperature 97.9 F Pulse Rate 76 Blood Pressure 164/89 H Pulse Oximetry 97 Intake & Output 12/05/17 12/06/17 12/06/17 18:59 06:59 18:59 Weight 95.254 kg Narrative: Limited due to patient's limited participation. Not noted to be in acute distress, no gross motor abnormalities noted. - Constitutional no acute distress Mental Status Examination Appearance: Disheveled Consciousness: Somnolent Orientation: Person, Place Speech: Slow Language: Adequate Fund of Knowledge: Inadequate Attention and Concentration: Inadequate Memory: Impaired Mood: Other ("better") Affect: Blunt Thought Process & Associations: Other (concrete) Thought Content: Hallucinations Hallucination Type: Auditory Delusion Type: None Suicidal Ideation: No Suicidal Plan: No Suicidal Intention: No Homicidal Ideation: No Homicidal Plan: No Homicidal Intention: No Insight: Poor Judgment: Poor Assessment and Plan - Assessment (1) Unspecified psychosis Code(s): F29 - Unspecified psychosis not due to a substance or known physiological condition Status: Acute (2) Polysubstance abuse Code(s): F19.10 - Other psychoactive substance abuse, uncomplicated Status: Acute - Plan Plan: Estimated LOS: [] days Patient is a 37-year-old -[place]ir[place] man, homeless, has 1 daughter, unemployed, with a past psychiatric history of polysubstance use disorder, previous psychiatric admissions, previous suicide attempts, with no past medical history, with a substance use history significant for methamphetamines, floccular, cocaine and marijuana, recently treated for acute kidney injury and rhabdomyolysis likely secondary from substance use which patient was noted to have increasingly agitation and aggressive behavior requiring restraints, patient was admitted to the inpatient psychiatry unit for further evaluation and management. Patient noted to be somnolent and sedated from recent ETO given to him prior to his admission, superficially cooperative but endorsing command auditory hallucinations which patient will be continued on Haldol 5mg PO BID for psychosis. Monitor mood and behavior, patient agrees to voluntary admission and has capacity to consent for treatment. Patient requesting transfer to inpatient rehabilitation program in [place]. Discharge planning in progress. Justification for Continued Inpatient Stay: At risk for further decompensation at lower level of care.
[2017-12-06 12:39] LABS: Alkaline Phosphatase 103 U/L (45-117); Chol/HDL Ratio 3.21 Ratio; Creatine Kinase 471 U/L (39-308); HDL Cholesterol 40.8 mg/dL (40.0-60.0); LDL Cholesterol,Calculated 51 mg/dL (0-99); Total Protein 6.7 g/dL (6.4-8.2); Triglycerides 195 mg/dL (42-150)
[2017-12-06 13:05] LABS: CKMB Percent 0.3 % (0.0-4.0); Creatine Kinase MB 1.4 ng/mL (0.5-3.6)
[2017-12-06] MEDS: Haloperidol 5 MG Tablet PO SCH ×2 (14:02→21:21)
--- NOTE | 2017-12-06 15:23 | ECG ---
Date Performed: 12/06/2017 Time Performed: 11:10:20 PTAGE: 37 years EKG: Sinus rhythm NORMAL ECG Since the PREVIOUS TRACING , no significant change noted PREVIOUS TRACIN11/21/2017 06.17 DOCTOR: Angela Gomez Interpretating Date/Time 12/06/2017 15:17:16
[2017-12-06 18:47] LABS: Hemoglobin A1c 4.7 % (4.3-6.0)
--- NOTE | 2017-12-07 07:16 | P.PN ---
Subjective Interval history: Patient doing well overnight. Patient is tolerating p.o., and voiding/stooling well. Patient reports that he would like to get transport to [place] so that he can join a drug rehab program. Patient denies headache chest pain or shortness of breath. Physical Exam Vital signs: Vital Signs 12/07/17 06:00 Temperature 97.6 F Pulse Rate 65 Respiratory Rate 19 Blood Pressure 164/90 H Pulse Oximetry 97 Narrative: GENERAL: well nourished, AAM, in NAD SKIN: Warm and dry. HEENT: Normocephalic. No scleral icterus. No injection or drainage. PERRLA, MOM. CARDIOVASCULAR: Regular rate and rhythm without murmurs, gallops, or rubs. RESPIRATORY: Breath sounds equal bilaterally. No accessory muscle use. GASTROINTESTINAL: Abdomen soft, non-tender, nondistended. MUSCULOSKELETAL: No cyanosis, or edema. NEURO: AAOx3, sleepy but answers questions, motor strength 5/5 Results - Labs CBC & Chem 7: 12/07/17 07:07 12/07/17 07:07 Laboratory Results - last 24 hr 12/06/17 12/06/17 12/06/17 11:17 11:17 11:17 WBC 7.1 RBC 3.78 L Hgb 12.7 L Hct 36.7 L MCV 97.1 MCH 33.7 MCHC 34.7 RDW 13.1 Plt Count 236 MPV 8.0 Neut % (Auto) 72.3 H Lymph % (Auto) 15.6 [place] % (Auto) 10.7 H Eos % (Auto) 0.9 Baso % (Auto) 0.5 Neut # (Auto) 5.1 Lymph # (Auto) 1.1 [place] # (Auto) 0.8 Eos # (Auto) 0.1 Baso # (Auto) 0.0 WBC Differential . Differential Comment Auto diff final Sodium 141 Potassium 3.9 Chloride 107 Carbon Dioxide 28.5 Anion Gap 6 BUN 16 Creatinine 1.11 Estimated GFR Greater than 89 Random Glucose 96 Hemoglobin A1c 4.7 Calcium 8.1 L Total Bilirubin 0.3 AST 19 ALT 24 Alkaline Phosphatase 103 Total Creatine Kinase 471 H CK-MB (CK-2) 1.4 CK-MB (CK-2) % 0.3 Total Protein 6.7 D Albumin 3.1 L Triglycerides 195 H Cholesterol 131 LDL Cholesterol, Calc 51 HDL Cholesterol 40.8 Cholesterol/HDL Ratio 3.21 Assessment and Plan - Assessment (1) Polysubstance abuse Code(s): F19.10 - Other psychoactive substance abuse, uncomplicated Status: Acute (2) Acute renal failure Code(s): N17.9 - Acute kidney failure, unspecified Status: Resolved (3) Cocaine abuse Code(s): F14.10 - Cocaine abuse, uncomplicated Status: Acute (4) Rhabdomyolysis Code(s): M62.82 - Rhabdomyolysis Status: Acute (5) Hypertension Code(s): I10 - Essential (primary) hypertension Status: Acute - Plan 37 y/o AAM with no significant PMHx admitted for IP mgmt of Drug Overdose with Rhabdo and MAYDA, HD#3 1. Acute Kidney Injury, resolved -Likely due to dehydration -Creatinine 3.96 on admission, resolved to 1.11. on 12/06 -s/p IVF's -Nephrology consulted on admission 2. Rhabdomyolysis, resolved -CK improved to 299 from 471, (2100 on admission) -s/p IVF -F/U CK in AM -Encourage PO hydration 3. Toxic Encephalopathy/Drug Use, resolved -UDS Cocaine positive, known FLOKKA user Patient with extreme agitation requiring Ativan IV PRN on admission -Head CT with no acute findings -Encourage cessation of drug use 4. Elevated Blood Pressures, poorly controlled overnight -Denies Hx of HTN -Started on Amlodipine during hospitalization, but patient refuses to take it, nurse will try to convince patient again today -Asymptomatic -Cont. to monitor 5. Leukocytosis, resolved 7.1 on 12/06 -Likely stress-induced, afebrile -Neg U/A -Neg CXR 6. DVT PPX: SCD's 7. Dispo: F/U blood pressure and CK in AM, once normal will sign off Code Status: full Discussed Condition With: patient, RN
[2017-12-07 07:48] LABS: Baso % (Auto) 0.8 % (0.0-2.0); Eos # (Auto) 0.1 th/mm3 (0.0-0.4); Eos % (Auto) 2.4 % (0.0-4.0); Hematocrit 38.1 % (39.0-51.0); Hemoglobin 12.9 gm/dL (13.0-17.0); Lymph # (Auto) 1.6 th/mm3 (1.0-4.8); Lymph % (Auto) 28.8 % (9.0-44.0); Mean Corpuscular HGB Conc 33.9 % (32.0-36.0); Mean Corpuscular Hemoglobin 33.1 pg (27.0-34.0); Mean Corpuscular Volume 97.7 fL (80.0-100.0); Mono # (Auto) 0.8 th/mm3 (0.0-0.9); Mono % (Auto) 13.7 % (0.0-8.0); Neut % (Auto) 54.3 % (16.0-70.0); Platelet Count 221 th/mm3 (150-450); White Blood Count 5.6 th/mm3 (4.0-11.0)
[2017-12-07 08:16] LABS: Albumin 3.1 g/dL (3.4-5.0); Anion Gap 8 meq/L (5-15); Aspartate Aminotransferase 17 U/L (15-37); Blood Urea Nitrogen 13 mg/dL (7-18); Calcium 8.5 mg/dL (8.5-10.1); Carbon Dioxide 26.9 meq/L (21.0-32.0); Chloride 106 meq/L (98-107); Glomerular Filtration Rate Greater Than 89 mL/min (>89); Glucose,Random 86 mg/dL (74-106); Sodium 141 meq/L (136-145)
[2017-12-07 08:18] LABS: Alanine Aminotransferase 21 U/L (12-78)
[2017-12-07 08:19] LABS: Alkaline Phosphatase 91 U/L (45-117); Creatine Kinase 299 U/L (39-308); Total Protein 6.9 g/dL (6.4-8.2)
[2017-12-07] MEDS: amLODIPine 5 MG Tablet PO SCH (09:12)
[2017-12-07] MEDS: Haloperidol 5 MG Tablet PO SCH ×2 (09:13→21:05)
--- NOTE | 2017-12-07 15:24 | P.PNPSY ---
Subjective Remarks: Reviewed electronic medical records and discussed case with staff. Follow-up was conducted in patient's room with FLAVIA Abraham. Patient found lying on the bed sleeping in no apparent distress. When asked how he feels he states, "I just want to get out of [place]". He reports that he has been having trouble falling and staying asleep. He states that his appetite is been good however he still hungry. I will order double trays for him. Assessment and Plan - Plan Plan: Patient will be reevaluated Saturday by the attending psychiatrist. Continue with current treatment plan. Justification for Continued Inpatient Stay: Moving this patient to a less restrictive environment would likely result in decompensation.
[2017-12-07] MEDS ORDERED: Haloperidol Inj 5 MG/ML Ampul ONE (19:21)
[2017-12-07] MEDS ORDERED: Haloperidol Inj 5 MG/ML Ampul IM ONE (19:45)
[2017-12-08] MEDS: amLODIPine 5 MG Tablet PO SCH (08:57)
[2017-12-08] MEDS: Haloperidol 5 MG Tablet PO SCH ×2 (08:57→20:49)
--- NOTE | 2017-12-08 11:44 | P.PNIM ---
Subjective Interval history: Patient states he wants to leave the hospital and go to a drug rehab Physical Exam Narrative: GENERAL: well nourished, AAM, in NAD SKIN: Warm and dry. HEENT: Normocephalic. No scleral icterus. No injection or drainage. PERRLA, MOM. CARDIOVASCULAR: Regular rate and rhythm without murmurs, gallops, or rubs. RESPIRATORY: Breath sounds equal bilaterally. No accessory muscle use. GASTROINTESTINAL: Abdomen soft, non-tender, nondistended. MUSCULOSKELETAL: No cyanosis, or edema. NEURO: AAOx3, sleepy but answers questions, motor strength 07/13 Results - Labs CBC & Chem 7: 12/07/17 07:07 12/07/17 07:07 Laboratory Results - last 24 hr 12/08/17 07:03 Total Creatine Kinase 264 - Procedures None Assessment and Plan - Assessment (1) Polysubstance abuse Code(s): F19.10 - Other psychoactive substance abuse, uncomplicated Status: Acute (2) Acute renal failure Code(s): N17.9 - Acute kidney failure, unspecified Status: Resolved (3) Cocaine abuse Code(s): F14.10 - Cocaine abuse, uncomplicated Status: Acute (4) Rhabdomyolysis Code(s): M62.82 - Rhabdomyolysis Status: Acute (5) Hypertension Code(s): I10 - Essential (primary) hypertension Status: Acute - Plan 37 y/o AAM with no significant PMHx admitted for IP mgmt of Drug Overdose with Rhabdo and MAYDA, HD#3 1. Acute Kidney Injury, resolved -Likely due to dehydration -Creatinine 3.96 on admission, resolved to 1.11. on 12/06 -s/p IVF's -Nephrology consulted on admission 2. Rhabdomyolysis, resolved -CK improved to 299 from 471, (2100 on admission) -s/p IVF -F/U CK in AM -Encourage PO hydration 3. Toxic Encephalopathy/Drug Use, resolved -UDS Cocaine positive, known FLOKKA user Patient with extreme agitation requiring Ativan IV PRN on admission -Head CT with no acute findings -Encourage cessation of drug use 4. Elevated Blood Pressures, poorly controlled overnight -Denies Hx of HTN -Started on Amlodipine during hospitalization, but patient refuses to take it, nurse will try to convince patient again today -Asymptomatic -Cont. to monitor 5. Leukocytosis, resolved 7.1 on 12/06 -Likely stress-induced, afebrile -Neg U/A -Neg CXR 6. DVT PPX: SCD's 7. Dispo: F/U blood pressure and CK in AM, once normal will sign off CKs are normal we will sign off the case Code Status: Full code Discussed Condition With: RN and patient Discharge Planning: Discharge when cleared by psychiatry No more illegal drugs
--- NOTE | 2017-12-08 14:34 | P.PNPSY ---
Subjective Remarks: Reviewed electronic medical records and discussed case with staff. Follow-up was conducted in the common area with FLAVIA Abraham present. Patient is anxious and expressing alot of distress. States he has to be transferred to [facility] by the [facility] in [place]. States they have a bed for him there. States that , " I always relapse in this town." Nursing reports that he has been cooperative today, but previously was crawling on the floor and slamming his body against the nursing station door. Patient is very demanding and wants things done now. I explained to patient that he was not going to be discharged today and that he could work with the [facility] [employer] tomorrow regarding his discharge plan. Review of Systems All other systems reviewed negative except as stated in HPI Mental Status Examination Appearance: Appropriate Consciousness: Alert Orientation: x4 Speech: Unremarkable Language: Adequate Fund of Knowledge: Adequate Attention and Concentration: Easily distracted Memory: Unremarkable Mood: Oppositional, Anxious, Irritable Affect: Anxious Thought Process & Associations: Intact Thought Content: Appropriate Delusion Type: None Suicidal Ideation: No Suicidal Plan: No Suicidal Intention: No Homicidal Ideation: No Homicidal Plan: No Homicidal Intention: No Insight: Fair Judgment: Impulsive Assessment and Plan - Assessment (1) 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 Psychiatrist will meet with patient on Saturday. Justification for Continued Inpatient Stay: Moving patient to a less restrictive environment may result in his decompensation.
[2017-12-09 06:11] VITALS: BP 177/110; PULSE 74; RESP 17; TEMP 98.3
[2017-12-09] MEDS: amLODIPine 5 MG Tablet PO SCH (08:13)
[2017-12-09] MEDS: Haloperidol 5 MG Tablet PO SCH ×2 (08:13→20:40)
--- NOTE | 2017-12-09 12:51 | P.PNIM ---
Subjective Interval history: PATIENT LYING IN BED NO CURRENT COMPLAINTS Physical Exam Vital signs: Vital Signs 12/08/17 17:44 12/09/17 06:00 Temperature 97.3 F L 98.3 F Pulse Rate 81 74 Respiratory Rate 16 17 Blood Pressure 151/98 H 177/110 H Pulse Oximetry 97 97 Intake & Output 12/08/17 12/09/17 12/09/17 18:59 06:59 18:59 Weight 82.3 kg Narrative: GENERAL: well nourished, AAM, in NAD SKIN: Warm and dry. HEENT: Normocephalic. No scleral icterus. No injection or drainage. PERRLA, MOM. CARDIOVASCULAR: Regular rate and rhythm without murmurs, gallops, or rubs. RESPIRATORY: Breath sounds equal bilaterally. No accessory muscle use. GASTROINTESTINAL: Abdomen soft, non-tender, nondistended. MUSCULOSKELETAL: No cyanosis, or edema. NEURO: AAOx3, sleepy but answers questions, motor strength 5/5 Results - Labs CBC & Chem 7: 12/07/17 07:07 12/07/17 07:07 - Procedures None Assessment and Plan - Assessment (1) Polysubstance abuse Code(s): F19.10 - Other psychoactive substance abuse, uncomplicated Status: Acute (2) Acute renal failure Code(s): N17.9 - Acute kidney failure, unspecified Status: Resolved (3) Cocaine abuse Code(s): F14.10 - Cocaine abuse, uncomplicated Status: Acute (4) Rhabdomyolysis Code(s): M62.82 - Rhabdomyolysis Status: Acute (5) Hypertension Code(s): I10 - Essential (primary) hypertension Status: Acute - Plan 37 y/o AAM with no significant PMHx admitted for IP mgmt of Drug Overdose with Rhabdo and MAYDA, HD#3 1. Acute Kidney Injury, resolved -Likely due to dehydration -Creatinine 3.96 on admission, resolved to 1.11. on 12/06 -s/p IVF's -Nephrology consulted on admission 2. Rhabdomyolysis, resolved -CK improved to 299 from 471, (2100 on admission) -s/p IVF -F/U CK in AM -Encourage PO hydration 3. Toxic Encephalopathy/Drug Use, resolved -UDS Cocaine positive, known FLOKKA user Patient with extreme agitation requiring Ativan IV PRN on admission -Head CT with no acute findings -Encourage cessation of drug use 4. Elevated Blood Pressures, poorly controlled overnight -Denies Hx of HTN -Started on Amlodipine during hospitalization, but patient refuses to take it, nurse will try to convince patient again today -Asymptomatic -Cont. to monitor 5. Leukocytosis, resolved 7.1 on 12/06 -Likely stress-induced, afebrile -Neg U/A -Neg CXR 6. DVT PPX: SCD's 7. Dispo: F/U blood pressure and CK in AM, once normal will sign off CKs are normal we will sign off the case Code Status: FULL CODE Discussed Condition With: RN AND PT Discharge Planning: Discharge when cleared by psychiatry No more illegal drugs
--- NOTE | 2017-12-09 15:40 | P.PNPSY ---
Subjective Remarks: Reviewed electronic medical records and discussed case with staff. Follow-up was conducted in the day room with steph Barth present. Patient maintains that he has not been sleeping very well. He does report that he has had a good appetite. Discharge plan is in progress for him to receive a bus ticket to [place] tomorrow. The estimated time of departure is 10 AM. Patient is aware of this plan and seems pleased with that. Mental Status Examination Appearance: Appropriate Consciousness: Alert Orientation: x4 Speech: Unremarkable Language: Adequate Fund of Knowledge: Adequate Attention and Concentration: Easily distracted Memory: Unremarkable Mood: Oppositional, Anxious, Irritable Affect: Anxious Thought Process & Associations: Intact Thought Content: Appropriate Hallucination Type: Auditory Delusion Type: None Suicidal Ideation: No Suicidal Plan: No Suicidal Intention: No Homicidal Ideation: No Homicidal Plan: No Homicidal Intention: No Insight: Fair Judgment: Impulsive Assessment and Plan - Assessment (1) Substance-induced psychotic disorder Code(s): F19.959 - Other psychoactive substance use, unspecified with psychoactive substance-induced psychotic disorder, unspecified Status: Acute - Plan Plan: Discharge plan is in place for tomorrow morning. Justification for Continued Inpatient Stay: Moving this patient to a less restrictive environment would likely result in decompensation.
--- NOTE | 2017-12-10 08:16 | P.DSPSY ---
Psychiatry Discharge Summary Inpatient Psychiatric care?: Yes Advance Directives: No Mental Health Advance Directive: No Health Care Proxy: No - Admission Admission Date: December 05, 2017 17:47 - Admission Diagnosis (1) Unspecified psychosis Code(s): F29 - Unspecified psychosis not due to a substance or known physiological condition (2) Polysubstance abuse Code(s): F19.10 - Other psychoactive substance abuse, uncomplicated Brief History: Patient is a 37-year-old -[place] man, homeless, has 1 daughter, unemployed, with a past psychiatric history of polysubstance use disorder, previous psychiatric admissions, previous suicide attempts, with no past medical history, with a substance use history significant for methamphetamines, floccular, cocaine and marijuana, recently treated for acute kidney injury and rhabdomyolysis likely secondary from substance use which patient was noted to have increasingly agitation and aggressive behavior requiring restraints, patient was admitted to the inpatient psychiatry unit for further evaluation and management. As per chart, patient with prior ED visits for substance intoxication. Patient was found lying on ground at sober living facility and was noted to be increasingly agitated and combative requiring restraints. Patient found lying on hospital bed, note to be somnolent, requiring to be woken up several times during interview but able to superficially cooperate with interview. Patient not able to provide much history stating "i don't know " to the majority of questioning. He mentions feeling better and endorses command auditory hallucinations telling him to kill himself. He denies any visual hallucinations, denies any suicidal or homicidal ideations. He mentions wanting to be transported to [facility] for inpatient rehabilitation program. Rest of history unable to obtain due to patient's limited participation in interview. Tobacco Use In Past 30 Days: No How Often Do You Have a Drink Containing Alcohol: Unable to Obtain Hospital Course: Patient is a 37-year-old -[place] man, homeless, has 1 daughter, unemployed, with a past psychiatric history of polysubstance use disorder, previous psychiatric admissions, previous suicide attempts, with no past medical history, with a substance use history significant for methamphetamines, floccular, cocaine and marijuana, recently treated for acute kidney injury and rhabdomyolysis likely secondary from substance use which patient was noted to have increasingly agitation and aggressive behavior requiring restraints, patient was admitted to the inpatient psychiatry unit for further evaluation and management. Patient was restarted on medication regimen to target mood and psychotic symptoms which he tolerated well with no notable adverse drug reactions. He was observed by staff not to have had any behavioral disturbances , denied any suicidal ideation and denied any homicidal ideations. Patient was able to reach and maintain stable mood with no longer endorsing perceptual disturbances and noted with improved organized thought process during admission and was noted to participate with staff adequately and in groups and activities. Patient was noted to participate in self-care, engaged with staff and maintaining adequate hygiene. Patient reported feeling good, future oriented and motivated to engage in continued outpatient treatment and engage in sober living facility in [place] where he has more support. Treatment team was able to set up transportation to [place] where he would be staying a sister facility of [facility] by the [facility] and can continue follow up for continuity of care. Upon discharge patient stated feeling "good" reported feeling well with treatment, agreed to continue treatment. Patient from a mental health perspective no longer met criteria for continued inpatient level of care. Patient denied any SI, HI, perceptual disturbances or delusions. Weighing the acute, chronic, and protective factors and based on the available evidence, I rn hematology to a reasonable degree of medical certainty that the patient is at low imminent risk of harm to self or others for mental illness as defined under the Gutierrez act and her level of function is adequate as observed on the unit for planned level of outpatient care. Patient was counseled regarding warning signs for need to return to the psychiatric emergency room as part of the general safety plan. Patient advised to call 911 or go to nearest ED in case of emergency. Patient agrees with plan. - Discharge Discharge Date: 12/10/17 - Discharge Diagnosis (1) Unspecified psychosis Code(s): F29 - Unspecified psychosis not due to a substance or known physiological condition Status: Acute (2) Polysubstance abuse Code(s): F19.10 - Other psychoactive substance abuse, uncomplicated Status: Acute Discharge Disposition: Sober living facility - Discharge Instructions Discharge Diet: Heart Healthy Diet Activities You Can Perform: Regular- No Restrictions - Discharge Time > 30 minutes Mental Status Examination Appearance: Appropriate Consciousness: Alert Orientation: x4 Speech: Unremarkable Language: Adequate Fund of Knowledge: Adequate Attention and Concentration: Adequate Memory: Unremarkable Mood: Appropriate Affect: Appropriate Thought Process & Associations: Intact Thought Content: Appropriate Hallucination Type: None Delusion Type: None Suicidal Ideation: No Suicidal Plan: No Suicidal Intention: No Homicidal Ideation: No Homicidal Plan: No Homicidal Intention: No Insight: Fair Judgment: Impulsive Discharge/Advance Care Plan - Results Vital Signs: Last Vital Signs Temp 98.3 F 12/09/17 06:00 Pulse 74 12/09/17 06:00 Resp 17 12/09/17 06:00 BP 177/110 H 12/09/17 06:00 Pulse Ox 97 12/09/17 06:00 Lab Results: Laboratory Results Hemoglobin A1c 4.7 % (4.3-6.0) 12/06/17 11:17 Triglycerides 195 mg/dL (42-150) H 12/06/17 11:17 Cholesterol 131 mg/dL (120-200) 12/06/17 11:17 LDL Cholesterol, Calc 51 mg/dL (0-99) 12/06/17 11:17 HDL Cholesterol 40.8 mg/dL (40.0-60.0) 12/06/17 11:17 Summary of Procedures: none Pending Results: None - Medications Number of antipsychotic medications at discharge: 1 - Discharge Care Plan Goals to Promote Your Health: * To prevent worsening of your condition and complications * To maintain your health at the optimal level Directions to Meet Your Goals: Take your medications as prescribed Follow your dietary instruction Follow activity as directed Keep your appointments as scheduled Take your immunizations and boosters as scheduled If your symptoms worsen call your PCP, if no PCP go to Urgent Care Center or Emergency Room For 01/10 questions related to your inpatient stay or results of tests pending at discharge, please contact Dr. Govind Salazar MD at Smoking is Dangerous to Your Health. Avoid second hand smoking
[2017-12-10] MEDS: amLODIPine 5 MG Tablet PO SCH (08:38)
[2017-12-10] MEDS: Haloperidol 5 MG Tablet PO SCH (08:38)
== END 2017-12-10 10:13 | disposition home or self-care (01) ==
LOC: H270 17:47
PROVIDERS: ADMIT Student in an Organized Health Care Education/Training Program; ATTEND Student in an Organized Health Care Education/Training Program